=== PATIENT | male | born 1975 | race Caucasian/White ===

== ENCOUNTER 2025-10-20 12:14 | Inpatient (IN) | payer MEDICAID, SELFPAY ==
[2025-10-20] VITALS (9 sets, daily range): BP systolic 125–169; BP diastolic 72–93; PULSE 76–90; RESP 13–18; TEMP 36.6–37.1; O2SAT 93–99; BMI 24.3; BMI 28.9
--- NOTE | 2025-10-20 12:21 | CT_ITS ---
FINAL REPORT TECHNIQUE: Thin section axial images are obtained through the abdomen and pelvis after intravenous contrast. Reconstruction images were obtained from the axial data. Exam was performed using dose reduction techniques. CLINICAL HISTORY: S/p colostomy, upper abdominal pain COMPARISON: None FINDINGS: LUNG BASES: Lung bases are clear. Heart size is normal. LIVER: Homogeneous. No focal lesion. GALLBLADDER/BILIARY SYSTEM: Gallbladder is present. No gallstones. No biliary dilatation. SPLEEN: Mildly enlarged. PANCREAS: Unremarkable. ADRENALS: Unremarkable. KIDNEYS/URETERS/BLADDER: No hydronephrosis, renal mass, or renal stone. Unremarkable urinary bladder. GI TRACT: There are dilated small bowel loops in the left mid abdomen and left lower quadrant. Loops are dilated up to 45 mm. There is mesenteric edema and a small amount of mesenteric fluid between the loops. Decompressed loops are noted both proximally and distally and closed loop obstruction is not excluded. There are changes from total colectomy. 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 The hernia does not appear to be the site of obstruction. PELVIC ORGANS: Prostate unremarkable. LYMPH NODES/RETROPERITONEUM/MESENTERY: No lymphadenopathy. No abdominal aortic aneurysm. ABDOMINAL WALL: The abdominal wall is intact. FREE FLUID: Small amount of free fluid in the pelvis. BONES: No acute osseous abnormality. IMPRESSION: Dilated small bowel loops in the left abdomen with decompressed loops both proximally and distally. Closed loop small-bowel obstruction not excluded. 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 Reviewed, Interpreted and Dictated by Ginny Yancey MD Transcribed by Margie Vieyra Authenticated and [facility]
--- NOTE | 2025-10-20 12:23 | ED_ITS ---
Discharge Plan Clinical Impressions Clinical Impression: SBO (small bowel obstruction), Acute hyponatremia, Elevated lactic acid level Instructions Patient Instructions: DI for Acute Abdominal Pain Print Language Print Language: Citizen Of [place] Discharge ED Provider: Cedric Odonnell General Adult HPI General Chief complaint: Abdominal Pain Stated complaint: abd pain Time Seen by Provider: 10/20/25 12:17 Mode of Arrival: EMS Source of Information: Patient and EMS Description of Symptoms (Recalled from ER Triage Doc. by RN): Patient states that he has had lower abdominal pain since about midnight this morning, also states he has had vomiting, but unable to tell me how mamy episodes of vomiting. Patient given Zofran and Toradol prior to arrival to ER by EMS and states it has helped pain some. History of Present Illness HPI narrative: Dustin Martel is a 50-year-old male with past medical history of ulcerative colitis status post colostomy 8 to 10 years ago at [facility] who presents to the emergency department for complaints of abdominal pain and nausea. Patient states that he was playing videogames last night at approximately midnight when he developed cramping abdominal pain that waxes and wanes in severity. He notes that he has had to empty his colostomy bag twice since then, which is normal for him. Has not had any change in his stool or blood in his stool. He denies any dysuria or hematuria. He is concerned he might have a bowel obstruction. He received Zofran and Toradol and route and states that he is feeling somewhat better after this. He denies any fevers. Related Data Allergies Allergy/AdvReac Type Severity Reaction Status Date / Time No Known Allergies Allergy Verified 10/20/25 12:19 [facility] Disclaimer: The information contained in this section may have been updated after the patient was seen, as this information can be updated by other users. Social History Smoking Status: Current every day smoker alcohol intake: never current occupational status: other Travel in the last 8 weeks?: None ROS Obtained: Yes Systems reviewed as appropriate & no additional complaints except as documented Physical Exam General General appearance: alert Comment: ill but non-toxic appearing Head Head exam: atraumatic Eye Eye exam: Present normal appearance ENT ENT exam: Present normal external ear exam Neck Neck exam: Present full ROM Chest Chest inspection: Present symmetric chest wall rise Respiratory Respiratory exam: Present normal lung sounds bilaterally; Absent respiratory distress, wheezes or stridor Cardiovascular Cardiovascular exam: Present regular rate and normal rhythm Abdominal Exam Abdominal exam: Present soft, distention (upper abdomen) and tenderness (LUQ and epigastric); Absent guarding or rigidity Comment: Nonbloody, semi solid stool output in ostomy exam: Present deferred Extremities Exam Extremities exam: Present normal inspection Back Exam Back exam: Present normal inspection Neurological Exam Neurological exam: Present alert and oriented X3 Psychiatric Psychiatric exam: Present normal affect Skin Skin exam: Present warm and dry Medical Decision Making Medical Records Screening: Per USPSTF and CDC recommendations, given the prevalence of disease in our region, it is our hospital?s policy to screen for HIV and viral Hepatitis for all patients aged 18 and over and those with ongoing risk factors. Zhou Inquiry Pt receiving controlled substance: No Vital Signs: 10/20/25 12:14 10/20/25 12:30 10/20/25 13:00 Temperature 98.7 F Temperature Source Oral Pulse Rate 82 86 Pulse Rate [Left Brachial] 90 Respiratory Rate 16 13 14 Blood Pressure 139/78 139/79 Blood Pressure [Left Arm] 169/93 H Blood Pressure Mean 94 Blood Pressure Mean [Left Arm] 118 Blood Pressure Source [Left Arm] Automatic Cuff Blood Pressure Position [Left Arm] Sitting 02 Sat by Pulse Oximetry 99 93 L 96 Oxygen Delivery Method Room Air 10/20/25 13:30 10/20/25 14:00 10/20/25 14:30 Temperature Temperature Source Pulse Rate 80 Pulse Rate [Left Brachial] Respiratory Rate 16 Blood Pressure 134/72 133/81 125/81 Blood Pressure [Left Arm] Blood Pressure Mean 92 92 88 Blood Pressure Mean [Left Arm] Blood Pressure Source [Left Arm] Blood Pressure Position [Left Arm] 02 Sat by Pulse Oximetry 97 Oxygen Delivery Method Lab Data Lab Results 10/20/25 12:15: WBC 10.5, RBC 5.64, Hgb 15.7, Hct 45.1, MCV 80.0, MCH 27.8, MCHC 34.8, RDW 12.8, Plt Count 345, MPV 8.7, Neut % (Auto) 90.3 H, Lymph % (Auto) 4.0 L, [place] % (Auto) 4.5, Eos % (Auto) 0.3, Baso % (Auto) 0.6, Neut # (Auto) 9.5 H, Lymph # (Auto) 0.4 L, Blaine # (Auto) 0.5, Eos # (Auto) 0.0, Baso # (Auto) 0.1, Total Counted 100, Neutrophils % (Manual) 90 H, Lymphocytes % (Manual) 6 L, Monocytes % (Manual) 4, Platelet Estimate Normal, RBC Morphology Normal, Sodium 129 L, Potassium 4.5, Chloride 96 L, Carbon Dioxide 22, Anion Gap 15.5 H, BUN 13, Creatinine 0.90, Estimated Creat Clear 105, Estimated GFR 89, Est GFR ( Amer) 107, Glucose 246 H, Lactate 3.9 H, Calcium 9.9, Total Bilirubin 1.1, AST 29, ALT 36, Alkaline Phosphatase 100, Total Protein 8.6 H, Albumin 5.1 H, Globulin 3.5 H, Albumin/Globulin Ratio 1.5, Lipase 63 10/20/25 13:35: Urine Color Yellow, Urine Appearance Clear, Urine pH 5.0, Ur Specific [place] 1.015, Urine Protein Negative, Urine Glucose (UA) 2+, Urine Ketones 1+, Urine Blood Negative, Urine Nitrate Negative, Urine Bilirubin Negative, Urine Urobilinogen 0.2, Ur Leukocyte Esterase Negative, Urine RBC None, Urine WBC None, Ur Squamous Epith Cells Occasional, Urine Bacteria None 10/20/25 12:15 10/20/25 12:15 Orders (Tests/Meds): ED MEDICATIONS Generic Name Dose Route Start Last Admin Trade Name Freq PRN Reason Stop Dose Admin Sodium Chloride 10 ml 10/20/25 13:06 10/20/25 13:08 Sodium Chloride 0.9% 10ml Syr (Rad Only) IV 11/19/25 13:05 10 ml NEEDED PRN Administration Maintain IV Site Discontinued Medications Generic Name Dose Route Start Last Admin Trade Name Freq PRN Reason Stop Dose Admin Iopamidol 75 ml 10/20/25 13:06 10/20/25 13:08 Iopamidol-370 (76%);100ml Bottle IV 10/20/25 13:07 75 ml ONCE ONE Administration ORDERS Category Date Time Status CT abdomen pelvis w con Stat Cat Scan 10/20/25 12:21 Completed CBC w/Auto Diff [Complete Blood Count Auto Diff] Stat Lab 10/20/25 12:15 Completed CMP [Comprehensive Metabolic Panel] Stat Lab 10/20/25 12:15 Completed Lactic Acid Stat Lab 10/20/25 12:15 Completed Lipase Stat Lab 10/20/25 12:15 Completed UA [Urinalysis and Microscopic] Stat Lab 10/20/25 13:35 Completed Medical Decision Narrative: Dustin Martel is a 50-year-old male with past medical history of ulcerative colitis status post colostomy 8 to 10 years ago at [facility], [facility] who presents to the emergency department for complaints of abdominal pain and nausea. Patient states that he was playing videogames last night at approximately midnight when he developed cramping abdominal pain that waxes and wanes in severity. He notes that he has had to empty his colostomy bag twice since then, which is normal for him. Has not had any change in his stool or blood in his stool. He denies any dysuria or hematuria. He is concerned he might have a bowel obstruction. He received Zofran and Toradol and route and states that he is feeling somewhat better after this. He denies any fevers. On arrival, patient is hemodynamically stable, in no acute distress, breathing comfortably on room air with appropriate oxygen saturation. Physical exam, as stated above, revealed an overall well-appearing male is nontoxic. Physical exam shows epigastric and left upper quadrant tenderness without rebound, peritonitis. Some mild guarding in the left upper quadrant. He does appear somewhat distended in the upper abdomen. Patient ostomy is in place with parastomal hernia that is reducible. Differential diagnosis includes, but is not limited to: Small bowel obstruction, gastritis, acute pancreatitis, constipation, among others. The most morbid conditions were considered and workup was based on these. Workup in the emergency department included hematologic labs, urinalysis, CT abdomen pelvis with IV contrast. Patient stated that his pain and nausea were improving at this time, will defer additional pain medication at this time. Laboratory studies show no leukocytosis, no anemia, hyponatremia at 129, electrolytes otherwise within normal limits. Mildly elevated anion gap 15.5, likely related to elevated lactate of 3.9 liver enzymes and bilirubin within normal limits. Lipase normal at 63. Urinalysis without blood or evidence of infection. CT abdomen pelvis with IV contrast was interpreted by me personally. Patient has dilated loops of small bowel in the left abdomen with decompressed loops of both proximally and distally. Closed-loop small bowel obstruction is not excluded. 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 Patient also has some mesenteric edema and small amount of mesenteric fluid between the loops. See radiology report for details. Given these findings, I discussed patient's case with Dr. Curiel with general surgery who recommended conservative management with NG tube placement. He recommended admission and surgery will evaluate the patient in the morning and if GI is needed, they can be consulted on Thursday. I discussed this with patient he is agreeable for NG tube placement and admission. Also discussed patient's case with Dr. Orlando with hospital medicine service for admission and he is agreeable to admit at this time. Critical Care Critical Care Time Critical Care Time: No
[2025-10-20 12:30] LABS: Hematocrit 45.1 % (42.0-52.0); Hemoglobin 15.7 g/dL (14.1-18.0); Immature Granulocytes % 0.3 %; Mean Corpuscular HGB Conc 34.8 g/dL (31.8-35.4); Mean Corpuscular Hemoglobin 27.8 pg (27.0-31.2); Mean Corpuscular Volume 80.0 fl (80-94); Nucleated Red Blood Cells % 0 %; Platelet Count 345 K/mm3 (142-424); Red Blood Count 5.64 M/mm3 (4.60-6.20); Red Cell Distribution Width-SD 36.2 fL; White Blood Count 10.5 K/mm3 (4.8-10.8)
[2025-10-20 12:37] LABS: Alanine Aminotransferase 36 U/L (12-78); Albumin Level 5.1 g/dl (3.5-5.0); Albumin/Globulin Ratio 1.5 (1.1-1.8); Alkaline Phosphatase 100 U/L (38-126); Anion Gap 15.5 mEq/L (5-15); Aspartate Amino Transferase 29 U/L (17-59); Bilirubin,Total 1.1 mg/dl (0.2-1.3); Blood Urea Nitrogen 13 mg/dl (9-20); Calcium 9.9 mg/dl (8.4-10.2); Carbon Dioxide 22 mmol/L (22.0-30.0); Chloride 96 mmol/L (98-107); Creatinine Clearance Estimated 105 mL/min (50-200); Creatinine,Serum 0.90 mg/dl (0.66-1.25); Estimated Glomerular Filt Rate 89 ml/min (>60); GFR (African American) 107 ML/MIN (>60); Globulin 3.5 g/dL (1.3-3.2); Glucose 246 mg/dl (74-100); Lipase 63 U/L (23-300); Potassium 4.5 mmoL/L (3.5-5.1); Sodium 129 mmol/L (136-145); Total Protein,Serum 8.6 g/dl (6.3-8.2)
--- NOTE | 2025-10-20 12:52 | PC.NURSE ---
Pt reminded of need for urine sample. Provided patient with urinal.
--- OUTSIDE RECORDS SUMMARY | 2025-10-20 12:57 | XMS_ITS ---
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 Role Phone RAHUL BOLANOS Unavailable CHANORAUL M Unavailable ALLERGIES, ADVERSE REACTIONS AND ALERTS Allergy Name Allergy Date Allergy Status Allergy Severity Allergy Reaction NO KNOWN DRUG ALLERGIES MEDICATIONS RxNorm Brand Name Prescription Ordered Value Order Unit Start Date Date Status Fill Status Indications [id number] buprenor phine-na loxone 8-2 mg tablet, sublingu al SIG: buprenorphine -naloxone 8-2 mg sublingual tablet, sublingual, 6 days, Dispense #6 Tablet, 0 RefillsDirect ions: Take 1 sublingual tablet qd 6 tablet, sublingu al 2020 Historic [id number] buprenor phine-na loxone 8-2 mg tablet, sublingu al SIG: buprenorphine -naloxone 8-2 mg sublingual tablet, sublingual, 6 days, Dispense #6 Tablet, 0 RefillsDirect ions: Take 1 sublingual tablet qd 6 tablet, sublingu al 2020 Current [id number] buprenor phine-na loxone 8-2 mg tablet, sublingu al SIG: buprenorphine -naloxone 8-2 mg sublingual tablet, sublingual, 7 days, Dispense #11 Tablet, 0 RefillsDirect ions: Take 1 and 1/2 sublingual tablet qd 11 tablet, sublingu al 2020 Historic [id number] buprenor phine-na loxone 8-2 mg tablet, sublingu al SIG: buprenorphine -naloxone 8-2 mg sublingual tablet, sublingual, 7 days, Dispense #11 Tablet, 0 RefillsDirect ions: Take 1 1/2 sublingual tablets qd 11 tablet, sublingu al 2020 [facility] buprenor phine-na loxone 8-2 mg tablet, sublingu al SIG: buprenorphine -naloxone 8-2 mg sublingual tablet, sublingual, 7 days, Dispense #14 Tablet, 0 RefillsDirect ions: Take 2 sublingual tablet qd 14 tablet, sublingu al 2020 [facility] buprenor phine-na loxone 8-2 mg tablet, sublingu al SIG: buprenorphine -naloxone 8-2 mg sublingual tablet, sublingual, 7 days, Dispense #14 Tablet, 0 RefillsDirect ions: Take 2 sublingual tablet qd 14 tablet, sublingu al 2020 [facility] buprenor phine-na loxone 8-2 mg tablet, sublingu al SIG: buprenorphine -naloxone 8-2 mg sublingual tablet, sublingual, 14 days, Dispense #28 Tablet, 0 RefillsDirect ions: Take 2 sublingual tablet qd 28 tablet, sublingu al 2020 [facility] buprenor phine-na loxone 8-2 mg tablet, sublingu al SIG: buprenorphine -naloxone 8-2 mg sublingual tablet, sublingual, 14 days, Dispense #28 Tablet, 0 RefillsDirect ions: Take 2 sublingual tablet qd 28 tablet, sublingu al 2020 Historic [id number] buprenor phine-na loxone 8-2 mg tablet, sublingu al SIG: buprenorphine -naloxone 8-2 mg sublingual tablet, sublingual, 28 days, Dispense #56 Tablet, 0 RefillsDirect ions: Take 2 sublingual tablet qd 56 tablet, sublingu al 2020 Historic [id number] buprenor phine-na loxone 8-2 mg tablet, sublingu al SIG: buprenorphine -naloxone 8-2 mg sublingual tablet, sublingual, 28 days, Dispense #56 Tablet, 0 RefillsDirect ions: Take 2 sublingual tablet qd 56 tablet, sublingu al 2020 Historic [id number] buprenor phine-na loxone 8-2 mg tablet, sublingu al SIG: buprenorphine -naloxone 8-2 mg sublingual tablet, sublingual, 28 days, Dispense #56 Tablet, 0 RefillsDirect ions: Take 2 sublingual tablet qd 56 tablet, sublingu al 2020 [facility] buprenor phine-na loxone 8-2 mg tablet, sublingu al SIG: buprenorphine -naloxone 8-2 mg sublingual tablet, sublingual, 28 days, Dispense #56 Tablet, 0 RefillsDirect ions: Take 2 sublingual tablet qd 56 tablet, sublingu al 2020 [facility] buprenor phine-na loxone 8-2 mg tablet, sublingu al SIG: buprenorphine -naloxone 8-2 mg sublingual tablet, sublingual, 28 days, Dispense #56 Tablet, 0 RefillsDirect ions: Take 2 sublingual tablet qd 56 tablet, sublingu al 2020 [facility] buprenor phine-na loxone 8-2 mg tablet, sublingu al SIG: buprenorphine -naloxone 8-2 mg sublingual tablet, sublingual, 22 days, Dispense #44 Tablet, 0 RefillsDirect ions: Take 2 sublingual tablet qd 44 tablet, sublingu al 2020 [facility] buprenor phine-na loxone 8-2 mg tablet, sublingu al SIG: buprenorphine -naloxone 8-2 mg sublingual tablet, sublingual, 7 days, Dispense #14 Tablet, 3 RefillsDirect ions: Take 2 sublingual tablet once a day 14 tablet, sublingu al 2021 [facility] buprenor phine-na loxone 8-2 mg tablet, sublingu al SIG: buprenorphine -naloxone 8-2 mg sublingual tablet, sublingual, 28 days, Dispense #56 Tablet, 0 RefillsDirect ions: Take 2 sublingual tablet once a day 56 tablet, sublingu al 2021 [facility] buprenor phine-na loxone 8-2 mg tablet, sublingu al SIG: buprenorphine -naloxone 8-2 mg sublingual tablet, sublingual, 28 days, Dispense #56 Tablet, 0 RefillsDirect ions: Take 2 sublingual tablet once a day 56 tablet, sublingu al 2021 [facility] buprenor phine-na loxone 8-2 mg tablet, sublingu al SIG: buprenorphine -naloxone 8-2 mg sublingual tablet, sublingual, 14 days, Dispense #28 Tablet, 0 RefillsDirect ions: Take 2 sublingual tablet once a day 28 tablet, sublingu al 2021 [facility] buprenor phine-na loxone 8-2 mg tablet, sublingu al SIG: buprenorphine -naloxone 8-2 mg sublingual tablet, sublingual, 28 days, Dispense #56 Tablet, 0 RefillsDirect ions: Take 2 sublingual tablet once a day 56 tablet, sublingu al 2021 [facility] buprenor phine-na loxone 8-2 mg tablet, sublingu al SIG: buprenorphine -naloxone 8-2 mg sublingual tablet, sublingual, 28 days, Dispense #56 Tablet, 0 RefillsDirect ions: Take 2 sublingual tablet once a day 56 tablet, sublingu al 2021 [facility] buprenor phine-na loxone 8-2 mg tablet, sublingu al SIG: buprenorphine -naloxone 8-2 mg sublingual tablet, sublingual, 28 days, Dispense #56 Tablet, 0 RefillsDirect ions: Take 2 sublingual tablet once a day 56 tablet, sublingu al 2021 [facility] buprenor phine-na loxone 8-2 mg tablet, sublingu al SIG: buprenorphine -naloxone 8-2 mg sublingual tablet, sublingual, 28 days, Dispense #56 Tablet, 0 RefillsDirect ions: Take 2 sublingual tablet once a day 56 tablet, sublingu al 2021 [facility] buprenor phine-na loxone 8-2 mg tablet, sublingu al SIG: buprenorphine -naloxone 8-2 mg sublingual tablet, sublingual, 28 days, Dispense #56 Tablet, 0 RefillsDirect ions: Take 2 sublingual tablet once a day 56 tablet, sublingu al 2021 [facility] buprenor phine-na loxone 8-2 mg tablet, sublingu al SIG: buprenorphine -naloxone 8-2 mg sublingual tablet, sublingual, 28 days, Dispense #56 Tablet, 0 RefillsDirect ions: Take 2 sublingual tablet once a day 56 tablet, sublingu al 2021 [facility] buprenor phine-na loxone 8-2 mg tablet, sublingu al SIG: buprenorphine -naloxone 8-2 mg sublingual tablet, sublingual, 28 days, Dispense #56 Tablet, 0 RefillsDirect ions: Take 2 sublingual tablet once a day 56 tablet, sublingu al 2021 [facility] buprenor phine-na loxone 8-2 mg tablet, sublingu al SIG: buprenorphine -naloxone 8-2 mg sublingual tablet, sublingual, 28 days, Dispense #56 Tablet, 0 RefillsDirect ions: Take 2 sublingual tablet once a day 56 tablet, sublingu al 2021 [facility] buprenor phine-na loxone 8-2 mg tablet, sublingu al SIG: buprenorphine -naloxone 8-2 mg sublingual tablet, sublingual, 28 days, Dispense #56 Tablet, 0 RefillsDirect ions: Take 2 sublingual tablet once a day 56 tablet, sublingu al 2021 [facility] buprenor phine-na loxone 8-2 mg tablet, sublingu al SIG: buprenorphine -naloxone 8-2 mg sublingual tablet, sublingual, 28 days, Dispense #56 Tablet, 0 RefillsDirect ions: Take 2 sublingual tablet once a day 56 tablet, sublingu al 2021 [facility] buprenor phine-na loxone 8-2 mg tablet, sublingu al SIG: buprenorphine -naloxone 8-2 mg sublingual tablet, sublingual, 28 days, Dispense #56 Tablet, 0 RefillsDirect ions: Take 2 sublingual tablet once a day 56 tablet, sublingu al 2022 [facility] buprenor phine-na loxone 8-2 mg tablet, sublingu al SIG: buprenorphine -naloxone 8-2 mg sublingual tablet, sublingual, 28 days, Dispense #56 Tablet, 0 RefillsDirect ions: Take 2 sublingual tablet once a day 56 tablet, sublingu al 2022 [facility] buprenor phine-na loxone 8-2 mg tablet, sublingu al SIG: buprenorphine -naloxone 8-2 mg sublingual tablet, sublingual, 28 days, Dispense #56 Tablet, 0 RefillsDirect ions: Take 2 sublingual tablet once a day 56 tablet, sublingu al 2022 [facility] buprenor phine-na loxone 8-2 mg tablet, sublingu al SIG: buprenorphine -naloxone 8-2 mg sublingual tablet, sublingual, 28 days, Dispense #56 Tablet, 0 RefillsDirect ions: Take 2 sublingual tablet once a day 56 tablet, sublingu al 2022 [facility] buprenor phine-na loxone 8-2 mg tablet, sublingu al SIG: buprenorphine -naloxone 8-2 mg sublingual tablet, sublingual, 28 days, Dispense #56 Tablet, 0 RefillsDirect ions: Take 2 sublingual tablet once a day 56 tablet, sublingu al 2022 [facility] buprenor phine-na loxone 8-2 mg tablet, sublingu al SIG: buprenorphine -naloxone 8-2 mg sublingual tablet, sublingual, 28 days, Dispense #56 Tablet, 0 RefillsDirect ions: Take 2 sublingual tablet once a day 56 tablet, sublingu al 2022 [facility] buprenor phine-na loxone 8-2 mg tablet, sublingu al SIG: buprenorphine -naloxone 8-2 mg sublingual tablet, sublingual, 28 days, Dispense #56 Tablet, 0 RefillsDirect ions: Take 2 sublingual tablet once a day 56 tablet, sublingu al 2022 [facility] buprenor phine-na loxone 8-2 mg tablet, sublingu al SIG: buprenorphine -naloxone 8-2 mg sublingual tablet, sublingual, 28 days, Dispense #56 Tablet, 0 RefillsDirect ions: Take 2 sublingual tablet once a day 56 tablet, sublingu al 2022 [facility] buprenor phine-na loxone 8-2 mg tablet, sublingu al SIG: buprenorphine -naloxone 8-2 mg sublingual tablet, sublingual, 28 days, Dispense #56 Tablet, 0 RefillsDirect ions: Take 2 sublingual tablet once a day 56 tablet, sublingu al 2022 [facility] buprenor phine-na loxone 8-2 mg tablet, sublingu al SIG: buprenorphine -naloxone 8-2 mg sublingual tablet, sublingual, 28 days, Dispense #56 Tablet, 0 RefillsDirect ions: Take 2 sublingual tablet once a day 56 tablet, sublingu al 2022 [facility] buprenor phine-na loxone 8-2 mg tablet, sublingu al SIG: buprenorphine -naloxone 8-2 mg sublingual tablet, sublingual, 28 days, Dispense #56 Tablet, 0 RefillsDirect ions: Take 2 sublingual tablet once a day 56 tablet, sublingu al 2022 [facility] buprenor phine-na loxone 8-2 mg tablet, sublingu al SIG: buprenorphine -naloxone 8-2 mg sublingual tablet, sublingual, 28 days, Dispense #56 Tablet, 0 RefillsDirect ions: Take 2 sublingual tablet once a day 56 tablet, sublingu al 2022 [facility] buprenor phine-na loxone 8-2 mg tablet, sublingu al SIG: buprenorphine -naloxone 8-2 mg sublingual tablet, sublingual, 28 days, Dispense #56 Tablet, 0 RefillsDirect ions: Take 2 sublingual tablet once a day 56 tablet, sublingu al 2022 [facility] buprenor phine-na loxone 8-2 mg tablet, sublingu al SIG: buprenorphine -naloxone 8-2 mg sublingual tablet, sublingual, 28 days, Dispense #56 Tablet, 0 RefillsDirect ions: Take 2 sublingual tablet once a day 56 tablet, sublingu al 2023 [facility] buprenor phine-na loxone 8-2 mg tablet, sublingu al SIG: buprenorphine -naloxone 8-2 mg sublingual tablet, sublingual, 28 days, Dispense #56 Tablet, 0 Refills, Directions: Place 2 tablets SL once a day 56 tablet, sublingu al 2023 [facility] buprenor phine-na loxone 8-2 mg tablet, sublingu al SIG: buprenorphine -naloxone 8-2 mg sublingual tablet, sublingual, 28 days, Dispense #56 Tablet, 0 Refills, Directions: Place 2 tablets SL once a day 56 tablet, sublingu al 2023 [facility] buprenor phine-na loxone 8-2 mg tablet, sublingu al SIG: buprenorphine -naloxone 8-2 mg sublingual tablet, sublingual, 7 days, Dispense #14 Tablet, 0 Refills, Directions: Take 2 sublingual tablet once a day 14 tablet, sublingu al 2023 [facility] buprenor phine-na loxone 8-2 mg tablet, sublingu al SIG: buprenorphine -naloxone 8-2 mg sublingual tablet, sublingual, 28 days, Dispense #56 Tablet, 0 Refills, Directions: Place 2 tablets SL once a day 56 tablet, sublingu al 2023 [facility] buprenor phine-na loxone 8-2 mg tablet, sublingu al SIG: buprenorphine -naloxone 8-2 mg sublingual tablet, sublingual, 28 days, Dispense #56 Tablet, 0 Refills, Directions: Place 2 tablets SL once a day 56 tablet, sublingu al 2023 [facility] buprenor phine-na loxone 8-2 mg tablet, sublingu al SIG: buprenorphine -naloxone 8-2 mg sublingual tablet, sublingual, 28 days, Dispense #56 Tablet, 0 Refills, Directions: Place 2 tablets SL once a day 56 tablet, sublingu al 2023 [facility] buprenor phine-na loxone 8-2 mg tablet, sublingu al SIG: buprenorphine -naloxone 8-2 mg sublingual tablet, sublingual, 28 days, Dispense #56 Tablet, 0 Refills, Directions: Place 2 tablets SL once a day 56 tablet, sublingu al 2023 [facility] buprenor phine-na loxone 8-2 mg tablet, sublingu al SIG: buprenorphine -naloxone 8-2 mg sublingual tablet, sublingual, 28 days, Dispense #56 Tablet, 0 Refills, Directions: Place 2 tablets SL once a day 56 tablet, sublingu al 2023 [facility] buprenor phine-na loxone 8-2 mg tablet, sublingu al SIG: buprenorphine -naloxone 8-2 mg sublingual tablet, sublingual, 28 days, Dispense #56 Tablet, 0 Refills, Directions: Place 2 tablets SL once a day 56 tablet, sublingu al 2023 Current [id number] buprenor phine-na loxone 8-2 mg tablet, sublingu al SIG: buprenorphine -naloxone 8-2 mg sublingual tablet, sublingual, 28 days, Dispense #56 Tablet, 0 Refills, Directions: Place 2 tablets SL once a day 56 tablet, sublingu al 2023 Current [id number] buprenor phine-na loxone 8-2 mg tablet, sublingu al SIG: buprenorphine -naloxone 8-2 mg sublingual tablet, sublingual, 22 days, Dispense #44 Tablet, 0 Refills, Directions: 2 tabs daily 44 tablet, sublingu al 2023 Current [id number] buprenor phine-na loxone 8-2 mg tablet, sublingu al SIG: buprenorphine -naloxone 8-2 mg sublingual tablet, sublingual, 27 days, Dispense #54 Tablet, 0 Refills, Directions: 2 tabs daily 54 tablet, sublingu al 2023 Current [id number] buprenor phine-na loxone 8-2 mg tablet, sublingu al SIG: buprenorphine -naloxone 8-2 mg sublingual tablet, sublingual, 28 days, Dispense #56 Tablet, 0 Refills, Directions: 2 tabs daily 56 tablet, sublingu al 2024 Current [id number] lisinopr il 10 mg tablet SIG: lisinopril 10 mg oral tablet, 30 days, Dispense #30 Tablet, 0 Refills, Directions: 1 po daily 30 tablet 2024 Current [id number] Abilify 2 mg tablet SIG: Abilify 2 mg oral tablet, 30 days, Dispense #30 Tablet, 0 Refills, Directions: 1 po daily 30 tablet 2024 Current [id number] escitalo pram oxalate 5 mg tablet SIG: escitalopram oxalate 5 mg oral tablet, 30 days, Dispense #30 Tablet, 0 Refills, Directions: 1 po daily 30 tablet 2024 Current [id number] buprenor phine-na loxone 8-2 mg tablet, sublingu al SIG: buprenorphine -naloxone 8-2 mg sublingual tablet, sublingual, 29 days, Dispense #58 Tablet, 0 Refills, Directions: 2 tabs daily 58 tablet, sublingu al 2024 Current [id number] buprenor phine-na loxone 8-2 mg tablet, sublingu al SIG: buprenorphine -naloxone 8-2 mg sublingual tablet, sublingual, 28 days, Dispense #56 Tablet, 0 Refills, Directions: 2 tabs daily 56 tablet, sublingu al 2024 Current [id number] buprenor phine-na loxone 8-2 mg tablet, sublingu al SIG: buprenorphine -naloxone 8-2 mg sublingual tablet, sublingual, 28 days, Dispense #56 Tablet, 0 Refills, Directions: 2 tabs daily 56 tablet, sublingu al 2024 Current [id number] buprenor phine-na loxone 8-2 mg tablet, sublingu al SIG: buprenorphine -naloxone 8-2 mg sublingual tablet, sublingual, 28 days, Dispense #56 Tablet, 0 Refills, Directions: 2 tabs daily 56 tablet, sublingu al 2024 [facility] buprenor phine-na loxone 8-2 mg tablet, sublingu al SIG: buprenorphine -naloxone 8-2 mg sublingual tablet, sublingual, 28 days, Dispense #56 Tablet, 0 Refills, Directions: 2 tabs daily 56 tablet, sublingu al 2024 Current [id number] buprenor phine-na loxone 8-2 mg tablet, sublingu al SIG: buprenorphine -naloxone 8-2 mg sublingual tablet, sublingual, 28 days, Dispense #56 Tablet, 0 Refills, Directions: 2 tabs daily 56 tablet, sublingu al 2024 [facility] buprenor phine-na loxone 8-2 mg tablet, sublingu al SIG: buprenorphine -naloxone 8-2 mg sublingual tablet, sublingual, 21 days, Dispense #53 Tablet, 0 Refills, Directions: 2.5 tabs daily 53 tablet, sublingu al 2024 Historic [id number] buprenor phine-na loxone 8-2 mg tablet, sublingu al SIG: buprenorphine -naloxone 8-2 mg sublingual tablet, sublingual, 28 days, Dispense #70 Tablet, 0 Refills, Directions: 2.5 tabs daily 70 tablet, sublingu al 2024 [facility] buprenor phine-na loxone 8-2 mg tablet, sublingu al SIG: buprenorphine -naloxone 8-2 mg sublingual tablet, sublingual, 28 days, Dispense #70 Tablet, 0 Refills, Directions: 2.5 tabs daily 70 tablet, sublingu al 2024 [facility] buprenor phine-na loxone 8-2 mg tablet, sublingu al SIG: buprenorphine -naloxone 8-2 mg sublingual tablet, sublingual, 28 days, Dispense #84 Tablet, 0 Refills, Directions: 3 tabs daily 84 tablet, sublingu al 2024 [facility] buprenor phine-na loxone 8-2 mg tablet, sublingu al SIG: buprenorphine -naloxone 8-2 mg sublingual tablet, sublingual, 7 days, Dispense #14 Tablet, 0 Refills, Directions: 2 tabs daily 14 tablet, sublingu al 2024 [facility] buprenor phine-na loxone 8-2 mg tablet, sublingu al SIG: buprenorphine -naloxone 8-2 mg sublingual tablet, sublingual, 14 days, Dispense #42 Tablet, 0 Refills, Directions: 3 tabs daily 42 tablet, sublingu al 2024 [facility] buprenor phine-na loxone 8-2 mg tablet, sublingu al SIG: buprenorphine -naloxone 8-2 mg sublingual tablet, sublingual, 28 days, Dispense #84 Tablet, 0 Refills, Directions: 3 tabs daily 84 tablet, sublingu al 2024 [facility] buprenor phine-na loxone 8-2 mg tablet, sublingu al SIG: buprenorphine -naloxone 8-2 mg sublingual tablet, sublingual, 28 days, Dispense #84 Tablet, 0 Refills, Directions: 3 tabs daily 84 tablet, sublingu al 2024 Current PROBLEMS Problem Code Problem Description Problem Status Problem Da te Problem End Date F11.20-OPIOID DEPENDENCE, UNCOMPLICATED OPIOID DEPENDENCE, UNCOMPLICATED Chronic 04/25/2021 PROCEDURES Procedure Description Date Notes NO PROCEDURES PERFORMED ASSESSMENTS Assessment None PLAN OF TREATMENT Assessment Planned Activity LOINC Planned Shiva e None CONSULTATION NOTE Note Author Date None HISTORY AND PHYSICAL NOTE Note Author Date None PROGRESS NOTE Note Author Date None DISCHARGE SUMMARY Note Author Date None CHIEF COMPLAINT AND REASON FOR VISIT FUNCTIONAL STATUS Functional or Cognitive Find ing None MENTAL STATUS Cognitive Finding None ENCOUNTERS Encounter Type Provider Diagnoses Start Date Location Disc harged to None SOCIAL HISTORY Social Status Observation Smoking Status Not Recorded Sex: Male Gender Identity: Male 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
[2025-10-20 13:02] LABS: RBC Morphology Normal; Total Cells Counted 100
[2025-10-20] MEDS: SODIUM CHLORIDE 0.9% 10ML SYR (RAD ONLY) 10 ML IV (13:08)
[2025-10-20] MEDS: IOPAMIDOL-370 (76%);100ML BOTTLE 75 ML IV (13:08)
[2025-10-20 13:41] LABS: Microscopic, Urine URINE MICROSCOPIC (MICROSCOPIC)
[2025-10-20 14:11] LABS: Bilirubin,Urine Negative (Negative); Color,Urine YELLOW (Yellow); Glucose,Urine (UA) 2+ (Negative); Ketones,Urine 1+ (Negative); Leukocyte Esterase,Urine Negative (Negative); PH,Urine 5.0 (5.0-8.5); Protein,Urine Negative (Negative); Specific Gravity, Urine 1.015 (1.005-1.030); Urobilinogen,Urine 0.2 EU/dl (0.2)
--- NOTE | 2025-10-20 14:44 | PC.NURSE ---
john guzman speaking with dr. ruiz
[2025-10-20 14:45] LABS: Squamous Epithelial Cell,Urine Occasional #/hpf (0-5)
--- NOTE | 2025-10-20 15:03 | P.HP_ITS ---
History of Present Illness *Admission Date: 10/20/25 *Reason for visit:: Nausea, vomiting, abdominal pain *History of present illness: Mr. Martel is a 50-year-old male with history of ulcerative colitis and opiate use disorder status post colostomy in 2017. Currently on Suboxone. Also has a history of diabetes and hypertension but is on no medications for these and has not seen a doctor in a year. States he was at home playing video games last night when he developed crampy abdominal pain that has been waxing and waning since. Had some stool output and emptied his bag earlier but has stopped having stool output since about noon today. Given the abdominal pain, he was concerned he might have a bowel obstruction. Presented to the ER for further evaluation. Also complains of some nausea and vomiting. Received Zofran via EMS along with Toradol and had some improvement in his pain. Workup in the ER with imaging of his abdomen. CT showed SBO with no specific transition point. Also noted to have lactate of 3.9, kidney function normal with BUN 13, creatinine 0.9. Glucose elevated at 246 with pseudohyponatremia at 129. Medicine consulted for admission and further management of SBO after placement of NG. Surgery consulted and recommended serial exams and conservative management at this time. After arriving to the floor, patient still having some nausea. Alert and oriented x 4. Stable on room air. Denies fevers. [facility] Disclaimer: The information contained in this section may have been updated after the patient was seen, as this information can be updated by other users. Medical History Diabetes HTN (hypertension) Opiate dependence Surgical History History of colectomy Family History Other Diabetes Family history of cancer Social History Smoking Status: Current every day smoker alcohol intake: never current occupational status: other Travel in the last 8 weeks?: None Have you lived/traveled outside US in past 30 days?: No Contact w/someone who lives/traveled outside US past 30 days?: No Exposure to someone with infectious disease in past 14 days?: No Do you have a fever (greater than 100.4 F or 38 C)?: No Have you tested positive for COVID-19?: No Exposed to someone with COVID-19 in past 14 days?: No Do you have a sore throat?: No Do you have a cough?: No Do you have any weakness?: No Are you experiencing any nausea/vomitting?: Yes Do you have any diarrhea?: No Are you experiencing any unusual bleeding?: No Do you have any muscle aches/pain?: No Do you have any abdominal pain?: Yes Are you experiencing loss of taste or smell?: No Review of Systems Review of Systems Review of systems (narrative): 14 point review of systems performed, pertinent positives and negatives as per HPI Meds Home Medications and Allergies Home Medications ?Medication ?Instructions ?Recorded ?Confirmed ?Type buprenorphine 8 mg-naloxone 2 mg 3 tab sublingual SAHRA Y 10/20/25 10/20/25 History sublingual tablet New Prescriptions to Start Prescriptions: Allergies Allergy/AdvReac Type Severity Reaction Status Date / Time No Known Allergies Allergy Verified 10/20/25 12:19 Exam Data for Last 24 hours Vital signs and Labs for Last 24 Hours: Temp Pulse Resp BP Pulse Ox O2 Del Method 98.7 F 80 16 125/81 97 Room Air 10/20/25 12:14 10/20/25 13:30 10/20/25 13:30 10/20/25 14:30 10/20/25 13:30 10/20/25 12:14 Laboratory Results - last 24 hr 10/20/25 12:15: WBC 10.5, RBC 5.64, Hgb 15.7, Hct 45.1, MCV 80.0, MCH 27.8, MCHC 34.8, RDW 12.8, Plt Count 345, MPV 8.7, Neut % (Auto) 90.3 H, Lymph % (Auto) 4.0 L, [place] % (Auto) 4.5, Eos % (Auto) 0.3, Baso % (Auto) 0.6, Neut # (Auto) 9.5 H, Lymph # (Auto) 0.4 L, [place] # (Auto) 0.5, Eos # (Auto) 0.0, Baso # (Auto) 0.1, Total Counted 100, Neutrophils % (Manual) 90 H, Lymphocytes % (Manual) 6 L, Monocytes % (Manual) 4, Platelet Estimate Normal, RBC Morphology Normal, Sodium 129 L, Potassium 4.5, Chloride 96 L, Carbon Dioxide 22, Anion Gap 15.5 H, BUN 13, Creatinine 0.90, Estimated Creat Clear 105, Estimated GFR 89, Est GFR ( Amer) 107, Glucose 246 H, Lactate 3.9 H, Calcium 9.9, Total Bilirubin 1.1, AST 29, ALT 36, Alkaline Phosphatase 100, Total Protein 8.6 H, Albumin 5.1 H, Globulin 3.5 H, Albumin/Globulin Ratio 1.5, Lipase 63 10/20/25 13:35: Urine Color Yellow, Urine Appearance Clear, Urine pH 5.0, Ur Specific [place] 1.015, Urine Protein Negative, Urine Glucose (UA) 2+, Urine Ketones 1+, Urine Blood Negative, Urine Nitrate Negative, Urine Bilirubin Negative, Urine Urobilinogen 0.2, Ur Leukocyte Esterase Negative, Urine RBC None, Urine WBC None, Ur Squamous Epith Cells Occasional, Urine Bacteria None I & O for Last 24 hours: Intake & Output 10/17/25 10/18/25 10/19/25 10/20/25 23:59 23:59 23:59 23:59 Weight 77.111 kg Constitutional Constitutional: mild distress, chronically ill appearing and cooperative *Routine HEENT Exam Head: Present normocephalic Eye: Present EOMI and PERRL ENT: Present mucous membranes moist Comments: NG in right nare *Routine Neck Exam Neck: Present supple; Absent lymphadenopathy *Routine Respiratory Exam Respiratory: Present CTA bilaterally; Absent respiratory distress, rhonchi, stridor, wheezes or crackles *Routine Cardiovascular Exam Cardiovascular: Present RRR and murmur (Systolic) *Routine Abdominal Exam Abdominal: Present soft, normoactive bowel sounds and tenderness (Mild, nonfocal); Absent distended or rebound Comments: Colostomy right lower abdomen with scant stool output *Routine Rectal Exam Rectal:: deferred *Routine Genitalia Exam Genitalia:: deferred *Routine Extremities Exam Extremities: Absent cyanosis, clubbing or edema *Routine Skin Exam Skin: Present intact and warm; Absent rash Comments: Scars on left forearm consistent with cutting *Routine Neurological Exam Neurological: Present alert, oriented X3 and moving all extremities; Absent altered mental status Assessment and Plan *Assessment and plan (1) SBO (small bowel obstruction): Status: Acute Category: Medical Code(s): K56.609 - Unspecified intestinal obstruction, unspecified as to partial versus complete obstruction (2) Acute hyponatremia: Status: Acute Category: Medical Code(s): E87.1 - Hypo-osmolality and hyponatremia (3) Elevated lactic acid level: Status: Acute Category: Medical Code(s): R79.89 - Other specified abnormal findings of blood chemistry (4) Diabetes: Status: Acute Category: Medical Code(s): E11.9 - Type 2 diabetes mellitus without complications (5) Ulcerative colitis: Status: Acute Category: Medical Code(s): K51.90 - Ulcerative colitis, unspecified, without complications (6) Colostomy present: Status: Acute Category: Medical Code(s): Z93.3 - Colostomy status (7) Opiate dependence: Status: Acute Category: Medical Code(s): F11.20 - Opioid dependence, uncomplicated Plan 50-year-old male with history of colostomy due to UC who presented with abdominal pain, nausea, vomiting. Workup in the ER concerning for SBO. NG placed. Discussed case with ER physician, request admission for serial exams and initial medical management of bowel obstruction. I agreed to admit for further care. Surgery consulted to assist with management. Problems addressed as follows: Small bowel obstruction History of colectomy Ulcerative colitis -CT per my review with dilated loops of small bowel. No clear transition point. 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 - White count normal at 10. Lactate elevated at 3.9. Kidney function normal with BUN 13, creatinine 0.9 - Initiate Toradol 30 mg IV every 6 hours as needed for pain. Zofran 4 mg as needed every 6 hours for nausea - NG in place, initiated on continuous low wall suction - Surgery consulted, to evaluate patient in the morning - Initiate on LR at 100 cc an hour for 2 L. Reevaluate fluid needs in the mo rning - Repeat CBC, CMP, magnesium ordered for the morning Type 2 diabetes - Not on any meds at this time. A1c 7.6. Initiate on sliding scale with fingersticks ACHS - Pseudohyponatremia with sodium 129, magnesium 4.5. Sodium likely low due to elevated glucose of 246. Monitor for improvement with treatment of diabetes. Hypertension: Not on any meds at this time. Monitor blood pressure for tr eatment. blood pressure acceptable at 142/80 at this time Opiate use disorder: On Suboxone. Uses one 8/2 mg dose 3 times a day. Continue home regimen while admitted. Increases for obstruction due to opiate effect on bowels. Definitely complicates his care. Tobacco use disorder: Nicotine patch daily as needed Full code Lovenox 40 mg subcu daily N.p.o.
--- NOTE | 2025-10-20 15:16 | PC.NURSE ---
NG tube inserted. secured at 60 , green/ yellow drainage noted. Verified by auscultation.
--- NOTE | 2025-10-20 15:18 | XR_ITS ---
FINAL REPORT CLINICAL HISTORY: Post NG Tube Placement FINDINGS: ABDOMEN SINGLE VIEW There is a nonspecific, nonobstructive bowel gas pattern. No abnormal dilatation is identified. NG tube tip is in the stomach. The sidehole is either at or just above the GE junction. There is no abnormal calcification. IMPRESSION: NG tube tip in the stomach. Reviewed, Interpreted and Dictated by Ginny Yancey MD Transcribed by Asiya Doyle Authenticated and [facility]
[2025-10-20 15:23] LABS: Hemoglobin A1C 7.6 % (4.0-6.0)
--- NOTE | 2025-10-20 15:42 | PC.NURSE ---
report called to rachel birch
[2025-10-20 16:00] LABS: Hepatitis C Ab Qual. W/ RFX NEGATIVE (Negative)
[2025-10-20 16:27] LABS: Reflex Lactic Add Lactic Reflex
--- NOTE | 2025-10-20 16:28 | PC.NURSE ---
patient arrived on the floor by bed @4001
[2025-10-20 16:48] LABS: POC Glucose,Bedside 187 gm/dL (70-110)
[2025-10-20] MEDS: ONDANSETRON 4MG/2ML VIAL 4 MG IV ×2 (16:55→21:57)
[2025-10-20] MEDS: LACTATED RINGERS 1000ML 1,000 ML 100 ML IV (16:56)
[2025-10-20] MEDS: NICOTINE 21MG/24HR PATCH 21 MG TD (16:56)
[2025-10-20] MEDS: KETOROLAC 30MG/ML VIAL 30 MG IV ×2 (16:56→21:58)
[2025-10-20] MEDS: humaLOG 100 UNITS/ML 10ML VIAL (SSI) SUBCUT (16:57)
[2025-10-20 17:03] LABS: Lactic Acid Follow Up (RFLX 1) 1.5 mmol/L (0.7-2.1)
[2025-10-20 19:58] LABS: POC Glucose,Bedside 142 gm/dL (70-110)
[2025-10-20] MEDS: PROMETHAZINE HCL 25MG/ML 1ML VIAL 12.5 MG IV (23:15)
[2025-10-21] VITALS: BP 158/91; PULSE 91; RESP 14; TEMP 36.7; O2SAT 98
--- NOTE | 2025-10-21 03:05 | PC.NURSE ---
Pt AOx4, pleasant. Tolerating room air. NG in R nare at 60 cm. Pt had some pain and nausea, which was treated per MAR. Pt currently resting in bed with eyes closed. Respirations even and unlabored. Bed low, locked, and call light in reach.
[2025-10-21] MEDS: LACTATED RINGERS 1000ML 1,000 ML 100 ML IV (03:23)
[2025-10-21 04:00] VITALS: BP 148/82; PULSE 87; RESP 12; TEMP 36.7; O2SAT 97; BMI 28.8
[2025-10-21] MEDS: ONDANSETRON 4MG/2ML VIAL 4 MG IV (04:42)
[2025-10-21] MEDS: KETOROLAC 30MG/ML VIAL 30 MG IV (04:42)
[2025-10-21 05:45] LABS: POC Glucose,Bedside 139 gm/dL (70-110)
[2025-10-21 06:57] LABS: Hematocrit 41.3 % (42.0-52.0); Hemoglobin 14.5 g/dL (14.1-18.0); Immature Granulocytes % 0.3 %; Mean Corpuscular HGB Conc 35.1 g/dL (31.8-35.4); Mean Corpuscular Hemoglobin 28.0 pg (27.0-31.2); Mean Corpuscular Volume 79.9 fl (80-94); Nucleated Red Blood Cells % 0 %; Platelet Count 305 K/mm3 (142-424); Red Blood Count 5.17 M/mm3 (4.60-6.20); Red Cell Distribution Width-SD 36.0 fL; White Blood Count 14.4 K/mm3 (4.8-10.8)
[2025-10-21 07:26] LABS: Alanine Aminotransferase 17 U/L (12-78); Albumin Level 4.4 g/dl (3.5-5.0); Albumin/Globulin Ratio 1.5 (1.1-1.8); Alkaline Phosphatase 85 U/L (38-126); Anion Gap 11.2 mEq/L (5-15); Aspartate Amino Transferase 24 U/L (17-59); Bilirubin,Total 1.4 mg/dl (0.2-1.3); Blood Urea Nitrogen 16 mg/dl (9-20); Calcium 9.2 mg/dl (8.4-10.2); Carbon Dioxide 23 mmol/L (22.0-30.0); Chloride 99 mmol/L (98-107); Creatinine Clearance Estimated 124 mL/min (50-200); Creatinine,Serum 0.90 mg/dl (0.66-1.25); Estimated Glomerular Filt Rate 89 ml/min (>60); GFR (African American) 107 ML/MIN (>60); Globulin 3.0 g/dL (1.3-3.2); Glucose 157 mg/dl (74-100); Magnesium 2.1 mg/dl (1.6-2.3); Potassium 4.2 mmoL/L (3.5-5.1); Sodium 129 mmol/L (136-145); Total Protein,Serum 7.4 g/dl (6.3-8.2)
[2025-10-21 08:00] VITALS: BP 142/74; PULSE 99; RESP 18; TEMP 36.7; O2SAT 99
[2025-10-21] MEDS: BUPRENORPHINE/NALOXONE 8MG/2MG ODT 1 EACH SL ×3 (09:02→20:10)
--- NOTE | 2025-10-21 09:20 | EXP.SURG.CON ---
History of Present Illness *Admission Date: 10/20/25 *Reason for visit:: Bowel obstruction *History of present illness: Patient is a 50-year-old male from [facility] with reported history of ulcerative colitis and reported history of opiate use disorder. He is on Suboxone. He has a history of diabetes and hypertension but currently not taking any medications and has not seen a physician in greater than a year. He underwent colostomy and hazard [facility] in 2017. He had developed intermittent cramping abdominal pain over 24 hours prior to presentation to the emergency department. He had noticed decreased output from his colostomy. He presented to the emergency department. He had some relief of his symptoms with Zofran and Toradol. He underwent CT scan in the emergency department which revealed findings consistent with total colectomy, dilated small bowel loops in the left abdomen with decompressed loops both proximally and distally. He has a right lower quadrant ostomy with parastomal hernia containing small bowel which does not appear to be site of any obstruction. Surgery was contacted. This is felt to be reasonable for admission for inpatient management for bowel obstruction. Subsequently the patient's nasogastric tube became dislodged and fell out . He states that he feels better. He has emptied his ileostomy bag. . [facility] Disclaimer: The information contained in this section may have been updated after the patient was seen, as this information can be updated by other users. Medical History Diabetes HTN (hypertension) Opiate dependence Surgical History History of colectomy Family History Other Diabetes Family history of cancer Social History Smoking Status: Current every day smoker alcohol intake: never current occupational status: other Travel in the last 8 weeks?: None Have you lived/traveled outside US in past 30 days?: No Contact w/someone who lives/traveled outside US past 30 days?: No Exposure to someone with infectious disease in past 14 days?: No Do you have a fever (greater than 100.4 F or 38 C)?: No Have you tested positive for COVID-19?: No Exposed to someone with COVID-19 in past 14 days?: No Do you have a sore throat?: No Do you have a cough?: No Do you have any weakness?: No Are you experiencing any nausea/vomitting?: Yes Do you have any diarrhea?: No Are you experiencing any unusual bleeding?: No Do you have any muscle aches/pain?: No Do you have any abdominal pain?: Yes Are you experiencing loss of taste or smell?: No Meds Home Medications and Allergies Home Medications ?Medication ?Instructions ?Recorded ?Confirmed ?Type buprenorphine 8 mg-naloxone 2 mg 3 tab sublingual DAILY 10/20/25 10/20/25 History sublingual tablet New Prescriptions to Start Prescriptions: Allergies Allergy/AdvReac Type Severity Reaction Status Date / Time No Known Allergies Allergy Verified 10/20/25 12:19 Exam (Inpt) Vital signs and Labs for Last 24 Hours: Temp Pulse Resp BP Pulse Ox O2 Del Method 98.1 F 99 H 18 142/74 H 99 Room Air 10/21/25 08:00 10/21/25 08:00 10/21/25 08:00 10/21/25 08:00 10/21/25 08:00 10/21/25 09:00 Laboratory Results - last 24 hr 10/20/25 12:15: WBC 10.5, RBC 5.64, Hgb 15.7, Hct 45.1, MCV 80.0, MCH 27.8, MCHC 34.8, RDW 12.8, Plt Count 345, MPV 8.7, Neut % (Auto) 90.3 H, Lymph % (Auto) 4.0 L, [place] % (Auto) 4.5, Eos % (Auto) 0.3, Baso % (Auto) 0.6, Neut # (Auto) 9.5 H, Lymph # (Auto) 0.4 L, [place] # (Auto) 0.5, Eos # (Auto) 0.0, Baso # (Auto) 0.1, Total Counted 100, Neutrophils % (Manual) 90 H, Lymphocytes % (Manual) 6 L, Monocytes % (Manual) 4, Platelet Estimate Normal, RBC Morphology Normal, Sodium 129 L, Potassium 4.5, Chloride 96 L, Carbon Dioxide 22, Anion Gap 15.5 H, BUN 13, Creatinine 0.90, Estimated Creat Clear 105, Estimated GFR 89, Est GFR ( Amer) 107, Glucose 246 H, Hemoglobin A1c 7.6 H, Lactate 3.9 H, Calcium 9.9, Total Bilirubin 1.1, AST 29, ALT 36, Alkaline Phosphatase 100, Total Protein 8.6 H, Albumin 5.1 H, Globulin 3.5 H, Albumin/Globulin Ratio 1.5, Lipase 63, HCV Ab JUAN w/Rflx PCR Qn Negative, HIV Ag/Ab Combo Qual Negative 10/20/25 13:35: Urine Color Yellow, Urine Appearance Clear, Urine pH 5.0, Ur Specific [place] 1.015, Urine Protein Negative, Urine Glucose (UA) 2+, Urine Ketones 1+, Urine Blood Negative, Urine Nitrate Negative, Urine Bilirubin Negative, Urine Urobilinogen 0.2, Ur Leukocyte Esterase Negative, Urine RBC None, Urine WBC None, Ur Squamous Epith Cells Occasional, Urine Bacteria None 10/20/25 16:37: POC Glucose 187 H 10/20/25 16:46: Lactate 1.5 10/20/25 19:48: POC Glucose 142 H 10/21/25 05:38: POC Glucose 139 H 10/21/25 06:08: WBC 14.4 H D, RBC 5.17, Hgb 14.5, Hct 41.3 L, MCV 79.9 L, MCH 28.0, MCHC 35.1, RDW 12.6, Plt Count 305, MPV 9.1, Neut % (Auto) 86.6 H, Lymph % (Auto) 3.5 L, [place] % (Auto) 7.9, Eos % (Auto) 1.3, Baso % (Auto) 0.4, Neut # (Auto) 12.5 H, Lymph # (Auto) 0.5 L, [place] # (Auto) 1.1 H, Eos # (Auto) 0.2, Baso # (Auto) 0.1, Sodium 129 L, Potassium 4.2, Chloride 99, Carbon Dioxide 23, Anion Gap 11.2, BUN 16, Creatinine 0.90, Estimated Creat Clear 124, Estimated GFR 89, Est GFR ( Amer) 107, Glucose 157 H D, Calcium 9.2, Magnesium 2.1, Total Bilirubin 1.4 H, AST 24, ALT 17 D, Alkaline Phosphatase 85, Total Protein 7.4, Albumin 4.4 D, Globulin 3.0, Albumin/Globulin Ratio 1.5 I & O for Labs for Last 24 Hours: Intake & Output 10/18/25 10/19/25 10/20/25 10/21/25 11:59 11:59 11:59 11:59 Intake Total 1000 / 1000 Output Total 250 / 250 Balance 750 / 750 Weight 201 lb 0.985 oz GI: Present soft; Absent distention Comments:: He has mild tenderness in the parastomal location. Abdomen is nondistended. Mild subjective tenderness in the left abdomen. Results Labs 10/21/25 06:08 10/21/25 06:08 Labs: Laboratory Results - last 24 hr 10/20/25 12:15: WBC 10.5, RBC 5.64, Hgb 15.7, Hct 45.1, MCV 80.0, MCH 27.8, MCHC 34.8, RDW 12.8, Plt Count 345, MPV 8.7, Neut % (Auto) 90.3 H, Lymph % (Auto) 4.0 L, [place] % (Auto) 4.5, Eos % (Auto) 0.3, Baso % (Auto) 0.6, Neut # (Auto) 9.5 H, Lymph # (Auto) 0.4 L, [place] # (Auto) 0.5, Eos # (Auto) 0.0, Baso # (Auto) 0.1, Total Counted 100, Neutrophils % (Manual) 90 H, Lymphocytes % (Manual) 6 L, Monocytes % (Manual) 4, Platelet Estimate Normal, RBC Morphology Normal, Sodium 129 L, Potassium 4.5, Chloride 96 L, Carbon Dioxide 22, Anion Gap 15.5 H, BUN 13, Creatinine 0.90, Estimated Creat Clear 105, Estimated GFR 89, Est GFR ( Amer) 107, Glucose 246 H, Hemoglobin A1c 7.6 H, Lactate 3.9 H, Calcium 9.9, Total Bilirubin 1.1, AST 29, ALT 36, Alkaline Phosphatase 100, Total Protein 8.6 H, Albumin 5.1 H, Globulin 3.5 H, Albumin/Globulin Ratio 1.5, Lipase 63, HCV Ab JUAN w/Rflx PCR Qn Negative, HIV Ag/Ab Combo Qual Negative 10/20/25 13:35: Urine Color Yellow, Urine Appearance Clear, Urine pH 5.0, Ur Specific [place] 1.015, Urine Protein Negative, Urine Glucose (UA) 2+, Urine Ketones 1+, Urine Blood Negative, Urine Nitrate Negative, Urine Bilirubin Negative, Urine Urobilinogen 0.2, Ur Leukocyte Esterase Negative, Urine RBC None, Urine WBC None, Ur Squamous Epith Cells Occasional, Urine Bacteria None 10/20/25 16:37: POC Glucose 187 H 10/20/25 16:46: Lactate 1.5 10/20/25 19:48: POC Glucose 142 H 10/21/25 05:38: POC Glucose 139 H 10/21/25 06:08: WBC 14.4 H D, RBC 5.17, Hgb 14.5, Hct 41.3 L, MCV 79.9 L, MCH 28.0, MCHC 35.1, RDW 12.6, Plt Count 305, MPV 9.1, Neut % (Auto) 86.6 H, Lymph % (Auto) 3.5 L, [place] % (Auto) 7.9, Eos % (Auto) 1.3, Baso % (Auto) 0.4, Neut # (Auto) 12.5 H, Lymph # (Auto) 0.5 L, [place] # (Auto) 1.1 H, Eos # (Auto) 0.2, Baso # (Auto) 0.1, Sodium 129 L, Potassium 4.2, Chloride 99, Carbon Dioxide 23, Anion Gap 11.2, BUN 16, Creatinine 0.90, Estimated Creat Clear 124, Estimated GFR 89, Est GFR ( Amer) 107, Glucose 157 H D, Calcium 9.2, Magnesium 2.1, Total Bilirubin 1.4 H, AST 24, ALT 17 D, Alkaline Phosphatase 85, Total Protein 7.4, Albumin 4.4 D, Globulin 3.0, Albumin/Globulin Ratio 1.5 Assessment and Plan *Assessment and plan (1) SBO (small bowel obstruction): Status: Acute Category: Medical Code(s): K56.609 - Unspecified intestinal obstruction, unspecified as to partial versus complete obstruction Plan Due to patient's clinical improvement and resumption of ostomy output plan to keep his NG out for now. May have a few limited sips of clears. Encourage ambulation.
[2025-10-21 09:37] LABS: RBC Morphology Normal; Total Cells Counted 100
[2025-10-21 10:50] LABS: POC Glucose,Bedside 173 gm/dL (70-110)
[2025-10-21 12:00] VITALS: BP 118/60; PULSE 71; RESP 16; TEMP 37.1; O2SAT 97
--- NOTE | 2025-10-21 12:06 | EXP.ACUTE.PN ---
Subjective *Date: 10/21/25 *Time: 12:06 Interval history: NG came out overnight. States he is feeling little better this morning. Having output from ostomy. Would like to try some clears. No nausea or vomiting. No chest pain or shortness of breath. Medical Exam Vital signs and Labs for Last 24 Hours: Vital Signs Temp Pulse Pulse Resp BP BP Pulse Ox 10/21/25 10:26 10/21/25 09:00 10/21/25 08:00 10/21/25 08:00 98.1 F 99 H 18 142/74 H 99 10/21/25 06:46 10/21/25 05:00 10/21/25 04:00 98.0 F 87 12 148/82 H 97 10/21/25 03:00 10/21/25 01:00 10/21/25 00:00 98.0 F 91 H 14 158/91 H 98 10/20/25 23:00 10/20/25 21:00 10/20/25 20:00 10/20/25 20:00 98.4 F 76 14 158/86 H 98 10/20/25 18:41 10/20/25 17:00 10/20/25 16:39 97.9 F 83 16 142/80 H 98 10/20/25 16:24 98.4 F 77 18 127/81 10/20/25 14:30 125/81 10/20/25 14:00 133/81 10/20/25 13:30 80 16 134/72 97 10/20/25 13:00 86 14 139/79 96 10/20/25 12:30 82 13 139/78 93 L 10/20/25 12:14 98.7 F 90 16 169/93 H 99 O2 Del Method 10/21/25 10:26 Room Air 10/21/25 09:00 Room Air 10/21/25 08:00 Room Air 10/21/25 08:00 Room Air 10/21/25 06:46 Room Air 10/21/25 05:00 Room Air 10/21/25 04:00 Room Air 10/21/25 03:00 Room Air 10/21/25 01:00 Room Air 10/21/25 00:00 Room Air 10/20/25 23:00 Room Air 10/20/25 21:00 Room Air 10/20/25 20:00 Room Air 10/20/25 20:00 Room Air 10/20/25 18:41 Room Air 10/20/25 17:00 Room Air 10/20/25 16:39 Room Air 10/20/25 16:24 Room Air 10/20/25 14:30 10/20/25 14:00 10/20/25 13:30 10/20/25 13:00 10/20/25 12:30 10/20/25 12:14 Room Air Intake and Output 10/20/25 10/21/25 10/21/25 23:59 07:59 15:59 Intake Total 1000 / 1700 700 / 1700 Output Total 200 / 250 50 / 50 Balance -200 / -250 950 / 1650 700 / 1650 Intake: Intake, Total IV Amount 1000 / 1700 700 / 1700 Lactated Ringers 1000ML 1,000 1000 / 1700 700 / 1700 ml @ 100 mls/hr IV .Q10H [facility], [facility] Rx #:[id number] Output: Output, Urine Amount 200 / 250 50 / 50 Other: Number of Unmeasured Voids 0 0 Weight 91.626 kg 91.2 kg Patient Weight 10/21/25 23:59 Weight 91.2 kg Laboratory Results - last 24 hr 10/20/25 12:15: WBC 10.5, RBC 5.64, Hgb 15.7, Hct 45.1, MCV 80.0, MCH 27.8, MCHC 34.8, RDW 12.8, Plt Count 345, MPV 8.7, Neut % (Auto) 90.3 H, Lymph % (Auto) 4.0 L, [place] % (Auto) 4.5, Eos % (Auto) 0.3, Baso % (Auto) 0.6, Neut # (Auto) 9.5 H, Lymph # (Auto) 0.4 L, [place] # (Auto) 0.5, Eos # (Auto) 0.0, Baso # (Auto) 0.1, Total Counted 100, Neutrophils % (Manual) 90 H, Lymphocytes % (Manual) 6 L, Monocytes % (Manual) 4, Platelet Estimate Normal, RBC Morphology Normal, Sodium 129 L, Potassium 4.5, Chloride 96 L, Carbon Dioxide 22, Anion Gap 15.5 H, BUN 13, Creatinine 0.90, Estimated Creat Clear 105, Estimated GFR 89, Est GFR ( Amer) 107, Glucose 246 H, Hemoglobin A1c 7.6 H, Lactate 3.9 H, Calcium 9.9, Total Bilirubin 1.1, AST 29, ALT 36, Alkaline Phosphatase 100, Total Protein 8.6 H, Albumin 5.1 H, Globulin 3.5 H, Albumin/Globulin Ratio 1.5, Lipase 63, HCV Ab JUAN w/Rflx PCR Qn Negative, HIV Ag/Ab Combo Qual Negative 10/20/25 13:35: Urine Color Yellow, Urine Appearance Clear, Urine pH 5.0, Ur Specific [place] 1.015, Urine Protein Negative, Urine Glucose (UA) 2+, Urine Ketones 1+, Urine Blood Negative, Urine Nitrate Negative, Urine Bilirubin Negative, Urine Urobilinogen 0.2, Ur Leukocyte Esterase Negative, Urine RBC None, Urine WBC None, Ur Squamous Epith Cells Occasional, Urine Bacteria None 10/20/25 16:37: POC Glucose 187 H 10/20/25 16:46: Lactate 1.5 10/20/25 19:48: POC Glucose 142 H 10/21/25 05:38: POC Glucose 139 H 10/21/25 06:08: WBC 14.4 H D, RBC 5.17, Hgb 14.5, Hct 41.3 L, MCV 79.9 L, MCH 28.0, MCHC 35.1, RDW 12.6, Plt Count 305, MPV 9.1, Neut % (Auto) 86.6 H, Lymph % (Auto) 3.5 L, [place] % (Auto) 7.9, Eos % (Auto) 1.3, Baso % (Auto) 0.4, Neut # (Auto) 12.5 H, Lymph # (Auto) 0.5 L, [place] # (Auto) 1.1 H, Eos # (Auto) 0.2, Baso # (Auto) 0.1, Total Counted 100, Neutrophils % (Manual) 85 H, Lymphocytes % (Manual) 3 L, Monocytes % (Manual) 10 H, Eosinophils % (Manual) 1, Basophils % (Manual) 1.0, Platelet Estimate Normal, RBC Morphology Normal, Sodium 129 L, Potassium 4.2, Chloride 99, Carbon Dioxide 23, Anion Gap 11.2, BUN 16, Creatinine 0.90, Estimated Creat Clear 124, Estimated GFR 89, Est GFR ( Amer) 107, Glucose 157 H D, Calcium 9.2, Magnesium 2.1, Total Bilirubin 1.4 H, AST 24, ALT 17 D, Alkaline Phosphatase 85, Total Protein 7.4, Albumin 4.4 D, Globulin 3.0, Albumin/Globulin Ratio 1.5 10/21/25 10:39: POC Glucose 173 H I & O for Labs for Last 24 Hours: Intake & Output 10/18/25 10/19/25 10/20/25 10/21/25 23:59 23:59 23:59 23:59 Intake Total 1700 / 1700 Output Total 200 / 250 50 / 50 Balance -200 / -250 1650 / 1650 Weight 91.626 kg 91.2 kg Constitutional: Present no acute distress, chronically ill appearing and cooperative Head: Present atraumatic Comment:: Seborrhea in distribution of ornelas Respiratory: Present normal respiratory effort; Absent rhonchi, wheezes or crackles Cardiac: Present Reg Rate and Rhythm GI: Present soft, tenderness (Discomfort diffusely) and normal bowel sounds; Absent distention Comments:: Colostomy present right lower abdomen, having liquid and loose stool output Extremities: Present normal inspection and full ROM Skin: Present intact; Absent erythema Comment:: Scars on left forearm consistent with prior cutting Neuro: Present Grossly Intact, alert, awake, oriented x 3 and moves all extremities Assessment and Plan *Assessment and plan (1) SBO (small bowel obstruction): Status: Acute Category: Medical Code(s): K56.609 - Unspecified intestinal obstruction, unspecified as to partial versus complete obstruction (2) Acute hyponatremia: Status: Acute Category: Medical Code(s): E87.1 - Hypo-osmolality and hyponatremia (3) Elevated lactic acid level: Status: Acute Category: Medical Code(s): R79.89 - Other specified abnormal findings of blood chemistry (4) Diabetes: Status: Acute Category: Medical Code(s): E11.9 - Type 2 diabetes mellitus without complications (5) Ulcerative colitis: Status: Acute Category: Medical Code(s): K51.90 - Ulcerative colitis, unspecified, without complications (6) Colostomy present: Status: Acute Category: Medical Code(s): Z93.3 - Colostomy status (7) Opiate dependence: Status: Acute Category: Medical Code(s): F11.20 - Opioid dependence, uncomplicated Plan 50-year-old male with history of colostomy due to UC who presented with abdominal pain, nausea, vomiting. Workup in the ER concerning for SBO. NG placed. Discussed case with ER physician, request admission for serial exams and initial medical management of bowel obstruction. I agreed to admit for further care. Surgery consulted to assist with management. Continues to require inpatient management pending advancement of diet. Problems addressed as follows: Small bowel obstruction History of colectomy Ulcerative colitis -CT per my review with dilated loops of small bowel. No clear transition point. 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 -Lactate normalized on morning lab at 1.5 -Continue Toradol 30 mg IV every 6 hours as needed for pain. Zofran 4 mg as needed every 6 hours for nausea - Surgery evaluated today, discussed case, as NG came out overnight, that he is having ostomy output, will hold on replacement of NG. Advance to sips and chips. Continue to monitor output with serial exams. Continue medical management. Encourage ambulation. -Discontinue IV fluid - White count bumped at 14.4. No focal signs of infection. Kidney function normal with BUN 16, creatinine 0.9. Magnesium 2.1. Potassium 4.2. Sodium 129. Glucose 157 on morning labs. - repeat CBC, CMP, magnesium ordered for the morning Type 2 diabetes - Not on any meds at this time. A1c 7.6. Initiate on sliding scale with fingersticks ACHS Hypertension: Not on any meds at this time. Monitor blood pressure for treatment. blood pressure acceptable at 142/74 at this time Opiate use disorder: On Suboxone. Uses one 8/2 mg dose 3 times a day. Continue home regimen while admitted. Increases for obstruction due to opiate effect on bowels. Definitely complicates his care. Tobacco use disorder: Nicotine patch daily as needed Full code Lovenox 40 mg subcu daily Sips and clears
[2025-10-21] MEDS: NICOTINE 21MG/24HR PATCH 21 MG TD (14:52)
--- NOTE | 2025-10-21 15:16 | PC.NURSE ---
Aox 4, up ad eva, right colostomy, fsbg achs, using urinal, 20g r ac sl, 90's on RA, 20g R AC sl.
[2025-10-21 15:59] LABS: POC Glucose,Bedside 138 gm/dL (70-110)
[2025-10-21 16:00] VITALS: BP 114/71; PULSE 74; RESP 16; TEMP 36.6; O2SAT 98
[2025-10-21 20:00] VITALS: BP 109/68; PULSE 69; RESP 16; TEMP 36.8; O2SAT 97
[2025-10-21] MEDS: PANTOPRAZOLE 40MG TABLET 40 MG PO (20:10)
[2025-10-21 20:30] LABS: POC Glucose,Bedside 133 gm/dL (70-110)
[2025-10-22] VITALS: BP 130/72; PULSE 69; RESP 16; TEMP 36.5; O2SAT 100
[2025-10-22 04:00] VITALS: BP 137/74; PULSE 73; RESP 16; TEMP 36.6; O2SAT 97; BMI 28.8
--- NOTE | 2025-10-22 05:23 | PC.NURSE ---
Pt. is alert and orientated x 4. Pt. is on room air. Pt. denies any pain , nausea, or vomiting this shift. Pt. has a right sided colostomy with liquid stool output. When pt. was admitted to the hospital he had no ostomy output, pain, nausea and vomiting. Pt. states that he is feeling a lot better. Pt. taking some sips and chips clear liquids and tolerating well. Pt. has slept on and off this shift. Personal items and call rivera in reach. Bed in low and locked position. Safety measures in place.
[2025-10-22 07:14] LABS: Hematocrit 40.2 % (42.0-52.0); Hemoglobin 13.5 g/dL (14.1-18.0); Immature Granulocytes % 0.3 %; Mean Corpuscular HGB Conc 33.6 g/dL (31.8-35.4); Mean Corpuscular Hemoglobin 27.3 pg (27.0-31.2); Mean Corpuscular Volume 81.4 fl (80-94); Nucleated Red Blood Cells % 0 %; Platelet Count 275 K/mm3 (142-424); Red Blood Count 4.94 M/mm3 (4.60-6.20); Red Cell Distribution Width-SD 37.6 fL; White Blood Count 6.6 K/mm3 (4.8-10.8)
[2025-10-22 07:24] LABS: Blood Urea Nitrogen 12 mg/dl (9-20); Calcium 9.3 mg/dl (8.4-10.2); Carbon Dioxide 26 mmol/L (22.0-30.0); Creatinine Clearance Estimated 111 mL/min (50-200); Creatinine,Serum 1.00 mg/dl (0.66-1.25); Estimated Glomerular Filt Rate 78 ml/min (>60); GFR (African American) 95 ML/MIN (>60); Glucose 137 mg/dl (74-100); Magnesium 2.2 mg/dl (1.6-2.3)
[2025-10-22 07:52] LABS: Anion Gap 9.6 mEq/L (5-15); Chloride 100 mmol/L (98-107); Potassium 4.6 mmoL/L (3.5-5.1); Sodium 131 mmol/L (136-145)
[2025-10-22] MEDS: BUPRENORPHINE/NALOXONE 8MG/2MG ODT 1 EACH SL ×3 (07:58→20:26)
[2025-10-22 08:00] VITALS: BP 151/74; PULSE 85; RESP 18; TEMP 36.8; O2SAT 99
[2025-10-22] MEDS: NICOTINE 21MG/24HR PATCH 21 MG TD ×2 (08:12→20:37)
--- NOTE | 2025-10-22 09:54 | P.PN_ITS ---
Subjective Patient reports: no new complaints Narrative: Patient has been tolerating clear liquids. Ileostomy output. He does state he feels a bit bloated but he states that he always feels bloated . Exam Data for Last 24 hours Vital signs and Labs for Last 24 Hours: Temp Pulse Resp BP Pulse Ox O2 Del Method 98.2 F 85 18 151/74 H 99 Room Air 10/22/25 08:00 10/22/25 08:00 10/22/25 08:00 10/22/25 08:00 10/22/25 08:00 10/22/25 08:00 Laboratory Results - last 24 hr 10/21/25 10:39: POC Glucose 173 H 10/21/25 15:52: POC Glucose 138 H 10/21/25 20:20: POC Glucose 133 H 10/22/25 06:15: WBC 6.6 D, RBC 4.94, Hgb 13.5 L, Hct 40.2 L, MCV 81.4, MCH 27.3, MCHC 33.6, RDW 12.8, Plt Count 275, MPV 9.2, Neut % (Auto) 67.9, Lymph % (Auto) 14.0, [place] % (Auto) 9.1, Eos % (Auto) 7.9, Baso % (Auto) 0.8, Neut # (Auto) 4.5, Lymph # (Auto) 0.9, [place] # (Auto) 0.6, Eos # (Auto) 0.5 H, Baso # (Auto) 0.1, Sodium 131 L, Potassium 4.6, Chloride 100, Carbon Dioxide 26, Anion Gap 9.6, BUN 12, Creatinine 1.00, Estimated Creat Clear 111, Estimated GFR 78, Est GFR ( Amer) 95, Glucose 137 H, Calcium 9.3, Magnesium 2.2 I & O for Last 24 hours: Intake & Output 10/19/25 10/20/25 10/21/25 10/22/25 11:59 11:59 11:59 11:59 Intake Total 1700 / 1700 120 / 120 Output Total 250 / 600 350 / 350 Balance 1450 / 1100 -230 / -230 Weight 201 lb 0.985 oz 201 lb *Routine Abdominal Exam Abdominal: Present soft Comments: Slightly distended. Less tenderness. Progress Note: A&P Assessment and plan (1) SBO (small bowel obstruction): Status: Acute Assessment and plan: Slowly advance diet. (2) Acute hyponatremia: Status: Acute (3) Elevated lactic acid level: Status: Acute (4) Diabetes: Status: Acute (5) Ulcerative colitis: Status: Acute (6) Colostomy present: Status: Acute (7) Opiate dependence: Status: Acute
--- NOTE | 2025-10-22 10:42 | EXP.ACUTE.PN ---
Subjective *Date: 10/22/25 *Time: 12:51 Interval history: For somewhat better. Belly pain improving. Still having ostomy output. Advancing diet today. Stable on room air. No nausea or vomiting Medical Exam Vital signs and Labs for Last 24 Hours: Vital Signs Temp Pulse Resp BP Pulse Ox O2 Del Method 10/22/25 10:35 Room Air 10/22/25 08:00 98.2 F 85 18 151/74 H 99 Room Air 10/22/25 08:00 Room Air 10/22/25 06:59 Room Air 10/22/25 05:00 Room Air 10/22/25 04:00 97.9 F 73 16 137/74 97 Room Air 10/22/25 03:00 Room Air 10/22/25 01:00 Room Air 10/22/25 00:00 97.7 F 69 16 130/72 100 Room Air 10/21/25 23:00 Room Air 10/21/25 21:00 Room Air 10/21/25 20:00 16 97 Room Air 10/21/25 20:00 98.2 F 69 16 109/68 L 97 Room Air 10/21/25 18:20 Room Air 10/21/25 16:00 97.8 F 74 16 114/71 98 Room Air 10/21/25 14:37 Room Air 10/21/25 12:00 98.8 F 71 16 118/60 97 Room Air Intake and Output 10/21/25 10/22/25 10/22/25 23:59 07:59 15:59 Intake Total 120 / 480 360 / 480 Output Total 0 / 0 0 / 0 Balance 120 / 480 360 / 480 Intake: Intake, Oral Amount 120 / 480 360 / 480 Output: Output, Urine Amount 0 / 0 0 / 0 Other: Number of Unmeasured Voids 1 1 Number of Bowel Movements 1 Weight 91.172 kg Patient Weight 10/22/25 23:59 Weight 91.172 kg Laboratory Results - last 24 hr 10/21/25 10:39: POC Glucose 173 H 10/21/25 15:52: POC Glucose 138 H 10/21/25 20:20: POC Glucose 133 H 10/22/25 06:15: WBC 6.6 D, RBC 4.94, Hgb 13.5 L, Hct 40.2 L, MCV 81.4, MCH 27.3, MCHC 33.6, RDW 12.8, Plt Count 275, MPV 9.2, Neut % (Auto) 67.9, Lymph % (Auto) 14.0, [place] % (Auto) 9.1, Eos % (Auto) 7.9, Baso % (Auto) 0.8, Neut # (Auto) 4.5, Lymph # (Auto) 0.9, [place] # (Auto) 0.6, Eos # (Auto) 0.5 H, Baso # (Auto) 0.1, Sodium 131 L, Potassium 4.6, Chloride 100, Carbon Dioxide 26, Anion Gap 9.6, BUN 12, Creatinine 1.00, Estimated Creat Clear 111, Estimated GFR 78, Est GFR ( Amer) 95, Glucose 137 H, Calcium 9.3, Magnesium 2.2 I & O for Labs for Last 24 Hours: Intake & Output 10/19/25 10/20/25 10/21/25 10/22/25 23:59 23:59 23:59 23:59 Intake Total 1700 / 1820 480 / 480 Output Total 200 / 250 400 / 400 0 / 0 Balance -200 / -250 1300 / 1420 480 / 480 Weight 91.626 kg 91.2 kg 91.172 kg Constitutional: Present no acute distress, chronically ill appearing and cooperative Head: Present atraumatic Comment:: Seborrhea in distribution of [place]nel[place] Respiratory: Present normal respiratory effort; Absent rhonchi, wheezes or crackles Cardiac: Present Reg Rate and Rhythm GI: Present soft, tenderness (Mild, improved) and normal bowel sounds; Absent distention Comments:: Colostomy present right lower abdomen, having liquid and loose stool output Extremities: Present normal inspection and full ROM Skin: Present intact; Absent erythema Comment:: Scars on left forearm consistent with prior cutting Neuro: Present Grossly Intact, alert, awake, oriented x 3 and moves all extremities Assessment and Plan *Assessment and plan (1) SBO (small bowel obstruction): Status: Acute Category: Medical Code(s): K56.609 - Unspecified intestinal obstruction, unspecified as to partial versus complete obstruction (2) Acute hyponatremia: Status: Acute Category: Medical Code(s): E87.1 - Hypo-osmolality and hyponatremia (3) Elevated lactic acid level: Status: Acute Category: Medical Code(s): R79.89 - Other specified abnormal findings of blood chemistry (4) Diabetes: Status: Acute Category: Medical Code(s): E11.9 - Type 2 diabetes mellitus without complications (5) Ulcerative colitis: Status: Acute Category: Medical Code(s): K51.90 - Ulcerative colitis, unspecified, without complications (6) Colostomy present: Status: Acute Category: Medical Code(s): Z93.3 - Colostomy status (7) Opiate dependence: Status: Acute Category: Medical Code(s): F11.20 - Opioid dependence, uncomplicated Plan 50-year-old male with history of colostomy due to UC who presented with abdominal pain, nausea, vomiting. Workup in the ER concerning for SBO. NG placed. Discussed case with ER physician, request admission for serial exams and initial medical management of bowel obstruction. I agreed to admit for further care. Surgery consulted to assist with management. Continues to require inpatient management pending advancement of diet. Problems addressed as follows: Small bowel obstruction History of colectomy Ulcerative colitis -CT per my review with dilated loops of small bowel. No clear transition point. 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 -Continue Toradol 30 mg IV every 6 hours as needed for pain. Zofran 4 mg as needed every 6 hours for nausea - Surgery evaluated today, discussed case, advance diet to full liquids. Monitor for 24 more hours. Anticipate potential discharge tomorrow if tolerates advancement. Still little bit more bloated today - White count Improved to 6.6. Hemoglobin 13.5. Kidney function normal with BUN 12, creatinine 1.0, glucose 137 on morning labs - repeat CBC, CMP, magnesium ordered for the morning Type 2 diabetes: Not on any meds at this time. A1c 7.6. Continue sliding scale with fingersticks ACHS Hypertension: Not on any meds at this time. Monitor blood pressure for treatment. blood pressure acceptable at 137/81 at this time Opiate use disorder: On Suboxone. Uses one 8/2 mg dose 3 times a day. Continue home regimen while admitted. Increases for obstruction due to opiate effect on bowels. Definitely complicates his care. Tobacco use disorder: Nicotine patch daily as needed Full code Lovenox 40 mg subcu daily Sips and clears
[2025-10-22] MEDS: humaLOG 100 UNITS/ML 10ML VIAL (SSI) SUBCUT ×3 (11:28→20:27)
[2025-10-22 11:29] LABS: POC Glucose,Bedside 278 gm/dL (70-110)
[2025-10-22 12:00] VITALS: BP 137/81; PULSE 75; RESP 20; TEMP 36.4; O2SAT 99
[2025-10-22 16:00] VITALS: BP 141/63; PULSE 80; RESP 18; TEMP 36.8; O2SAT 97
[2025-10-22 16:36] LABS: POC Glucose,Bedside 172 gm/dL (70-110)
[2025-10-22 17:07] VITALS: BMI 28.8
[2025-10-22 20:00] VITALS: BP 156/77; PULSE 73; RESP 16; TEMP 37; O2SAT 98
[2025-10-22 20:09] LABS: POC Glucose,Bedside 156 gm/dL (70-110)
[2025-10-22] MEDS: PANTOPRAZOLE 40MG TABLET 40 MG PO (20:26)
[2025-10-23] VITALS: BP 140/75; PULSE 68; RESP 16; TEMP 36.7; O2SAT 98
[2025-10-23 04:00] VITALS: BP 131/80; PULSE 81; RESP 16; TEMP 36.6; O2SAT 98; BMI 29.0
--- NOTE | 2025-10-23 04:51 | PC.NURSE ---
Pt. is alert and orientated x 4. Pt. is on room air. Pt. has had no c/o pain, nausea, or vomiting. Pt. has right sided colostomy with liquid stool output. Pt. states that he is feeling much better. Pt. tolerating regular diet at this time. Pt. has slept on and off this shift. Personal items and call rivera in reach. Bed in low and locked position. Safety measures in place.
[2025-10-23 06:18] LABS: POC Glucose,Bedside 135 gm/dL (70-110)
[2025-10-23 06:24] LABS: Hematocrit 42.4 % (42.0-52.0); Hemoglobin 14.4 g/dL (14.1-18.0); Immature Granulocytes % 0.3 %; Mean Corpuscular HGB Conc 34.0 g/dL (31.8-35.4); Mean Corpuscular Hemoglobin 27.4 pg (27.0-31.2); Mean Corpuscular Volume 80.6 fl (80-94); Nucleated Red Blood Cells % 0 %; Platelet Count 289 K/mm3 (142-424); Red Blood Count 5.26 M/mm3 (4.60-6.20); Red Cell Distribution Width-SD 36.2 fL; White Blood Count 6.7 K/mm3 (4.8-10.8)
[2025-10-23 06:39] LABS: Albumin Level 4.4 g/dl (3.5-5.0); Chloride 97 mmol/L (98-107); Sodium 137 mmol/L (136-145)
[2025-10-23 06:40] LABS: Potassium 3.9 mmoL/L (3.5-5.1)
[2025-10-23 06:42] LABS: Alanine Aminotransferase 19 U/L (12-78); Albumin/Globulin Ratio 1.4 (1.1-1.8); Alkaline Phosphatase 80 U/L (38-126); Anion Gap 15.9 mEq/L (5-15); Aspartate Amino Transferase 22 U/L (17-59); Bilirubin,Total 0.9 mg/dl (0.2-1.3); Blood Urea Nitrogen 9 mg/dl (9-20); Carbon Dioxide 28 mmol/L (22.0-30.0); Creatinine Clearance Estimated 113 mL/min (50-200); Creatinine,Serum 1.00 mg/dl (0.66-1.25); Estimated Glomerular Filt Rate 78 ml/min (>60); GFR (African American) 95 ML/MIN (>60); Globulin 3.1 g/dL (1.3-3.2); Total Protein,Serum 7.5 g/dl (6.3-8.2)
[2025-10-23 06:43] LABS: Calcium 9.1 mg/dl (8.4-10.2); Glucose 139 mg/dl (74-100)
--- NOTE | 2025-10-23 06:57 | EXP.SURG.PN ---
Subjective Narrative: Patient has no complaints. Tolerating diet. Ileostomy output. States that he feels that he is likely back to his baseline. Exam Data for Last 24 hours Vital signs and Labs for Last 24 Hours: Temp Pulse Resp BP Pulse Ox O2 Del Method 97.8 F 81 16 131/80 98 Room Air 10/23/25 04:00 10/23/25 04:00 10/23/25 04:00 10/23/25 04:00 10/23/25 04:00 10/23/25 05:00 Laboratory Results - last 24 hr 10/22/25 06:15: WBC 6.6 D, RBC 4.94, Hgb 13.5 L, Hct 40.2 L, MCV 81.4, MCH 27.3, MCHC 33.6, RDW 12.8, Plt Count 275, MPV 9.2, Neut % (Auto) 67.9, Lymph % (Auto) 14.0, [place] % (Auto) 9.1, Eos % (Auto) 7.9, Baso % (Auto) 0.8, Neut # (Auto) 4.5, Lymph # (Auto) 0.9, [place] # (Auto) 0.6, Eos # (Auto) 0.5 H, Baso # (Auto) 0.1, Sodium 131 L, Potassium 4.6, Chloride 100, Carbon Dioxide 26, Anion Gap 9.6, BUN 12, Creatinine 1.00, Estimated Creat Clear 111, Estimated GFR 78, Est GFR ( Amer) 95, Glucose 137 H, Calcium 9.3, Magnesium 2.2 10/22/25 11:22: POC Glucose 278 H 10/22/25 16:29: POC Glucose 172 H 10/22/25 19:59: POC Glucose 156 H 10/23/25 06:10: POC Glucose 135 H 10/23/25 06:11: WBC 6.7, RBC 5.26, Hgb 14.4, Hct 42.4, MCV 80.6, MCH 27.4, MCHC 34.0, RDW 12.6, Plt Count 289, MPV 8.6, Neut % (Auto) 72.0, Lymph % (Auto) 14.6, [place] % (Auto) 7.5, Eos % (Auto) 4.7, Baso % (Auto) 0.9, Neut # (Auto) 4.8, Lymph # (Auto) 1.0, [place] # (Auto) 0.5, Eos # (Auto) 0.3, Baso # (Auto) 0.1, Sodium 137, Potassium 3.9, Chloride 97 L, Carbon Dioxide 28, Anion Gap 15.9 H, BUN 9, Creatinine 1.00, Estimated Creat Clear 113, Estimated GFR 78, Est GFR ( Amer) 95, Glucose 139 H, Calcium 9.1, Total Bilirubin 0.9, AST 22, ALT 19, Alkaline Phosphatase 80, Total Protein 7.5, Albumin 4.4, Globulin 3.1, Albumin/Globulin Ratio 1.4 I & O for Last 24 hours: Intake & Output 10/20/25 10/21/25 10/22/25 10/23/25 11:59 11:59 11:59 11:59 Intake Total 1700 / 1700 480 / 480 870 / 870 Output Total 250 / 600 350 / 350 2 / 2 Balance 1450 / 1100 130 / 130 868 / 868 Weight 201 lb 0.985 oz 201 lb 203 lb 4.259 oz *Routine Abdominal Exam Abdominal: Absent tenderness Comments: Palpable parastomal hernia Progress Note: A&P Assessment and plan (1) SBO (small bowel obstruction): Status: Acute Assessment and plan: Continue nonoperative management. (2) Acute hyponatremia: Status: Acute (3) Elevated lactic acid level: Status: Acute (4) Diabetes: Status: Acute (5) Ulcerative colitis: Status: Acute (6) Colostomy present: Status: Acute (7) Opiate dependence: Status: Acute
--- NOTE | 2025-10-23 07:00 | P.DS_ITS ---
General Admission date:: 10/20/25 Discharge date: 10/23/25 HPI HPI HPI: Patient is a 50-year-old male from [facility] with reported history of ulcerative colitis and reported history of opiate use disorder. He is on Suboxone. He has a history of diabetes and hypertension but currently not taking any medications and has not seen a physician in greater than a year. He underwent colostomy and hazard [facility] in 2017. He had developed intermittent cramping abdominal pain over 24 hours prior to presentation to the emergency department. He had noticed decreased output from his colostomy. He presented to the emergency department. He had some relief of his symptoms with Zofran and Toradol. He underwent CT scan in the emergency department which revealed findings consistent with total colectomy, dilated small bowel loops in the left abdomen with decompressed loops both proximally and distally. He has a right lower quadrant ostomy with parastomal hernia containing small bowel which does not appear to be site of any obstruction. Surgery was contacted. This is felt to be reasonable for admission for inpatient management for bowel obstruction. Subsequently the patient's nasogastric tube became dislodged and fell out . He states that he feels better. He has emptied his ileostomy bag. Hospital Course Hospital Course Hospital Course: 50-year-old male with history of colostomy due to UC who presented with abdominal pain, nausea, vomiting. Workup in the ER concerning for SBO. NG plac ed. Discussed case with ER physician, request admission for serial exams and initial medical management of bowel obstruction. I agreed to admit for further care. Surgery consulted to assist with management. Obstruction resolved with conservative management. NG out in first 24 hours of admission. Able to gradually advance diet with continued output and improvement in bloating. Stable to discharge home with close follow-up as an outpatient either with surgery at [facility] or his surgeon in [facility], at patient's discretion. Problems addressed as follows: Small bowel obstruction History of colectomy Ulcerative colitis -CT per my review with dilated loops of small bowel. No clear transition point. 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 Pain managed with Toradol and resumption of his buprenorphine. Surgery consulted to assist with management. Initially had NG in place. Came out within first 24 hours. As patient was having output, it was not replaced. Diet was slowly advanced and patient's abdominal pain, nausea, bloating gradually resolved. Able to tolerate regular diet without incident by day of discharge. Recommend close follow-up as an outpatient. Overall doing well. No indication for antibiotics at discharge. Labs including white count and kidney function remain normal. Type 2 diabetes: Not on any meds at this time. A1c 7.6. Recommend further discussion with PCP about medication initiation. Received minimal insulin during admission. Held on med initiation given patient's GI symptoms and glucose levels less than 200 during admission. Hypertension: Not on any meds at this time. Stable during admission. Pressure relatively well-controlled during admission. Further discussion with PCP about initiation of blood pressure meds after reevaluation in the outpatient setting Opiate use disorder: On Suboxone. Uses one 8/2 mg dose 3 times a day. Continue home regimen while admitted. Increases risk for obstruction due to opiate effect on bowels. Definitely complicates his care. Tobacco use disorder: Nicotine patch daily as needed Total time spent on discharge 32 minutes in counseling, documentation, chart review, and direct care with patient. Exam Data for Last 24 hours Vital signs and Labs for Last 24 Hours: Temp Pulse Resp BP Pulse Ox O2 Del Method 97.8 F 81 16 131/80 98 Room Air 10/23/25 04:00 10/23/25 04:00 10/23/25 04:00 10/23/25 04:00 10/23/25 04:00 10/23/25 05:00 Laboratory Results - last 24 hr 10/22/25 06:15: WBC 6.6 D, RBC 4.94, Hgb 13.5 L, Hct 40.2 L, MCV 81.4, MCH 27.3, MCHC 33.6, RDW 12.8, Plt Count 275, MPV 9.2, Neut % (Auto) 67.9, Lymph % (Auto) 14.0, Mobile % (Auto) 9.1, Eos % (Auto) 7.9, Baso % (Auto) 0.8, Neut # (Auto) 4.5, Lymph # (Auto) 0.9, Mobile # (Auto) 0.6, Eos # (Auto) 0.5 H, Baso # (Auto) 0.1, Sodium 131 L, Potassium 4.6, Chloride 100, Carbon Dioxide 26, Anion Gap 9.6, BUN 12, Creatinine 1.00, Estimated Creat Clear 111, Estimated GFR 78, Est GFR ( Amer) 95, Glucose 137 H, Calcium 9.3, Magnesium 2.2 10/22/25 11:22: POC Glucose 278 H 10/22/25 16:29: POC Glucose 172 H 10/22/25 19:59: POC Glucose 156 H 10/23/25 06:10: POC Glucose 135 H 10/23/25 06:11: WBC 6.7, RBC 5.26, Hgb 14.4, Hct 42.4, MCV 80.6, MCH 27.4, MCHC 34.0, RDW 12.6, Plt Count 289, MPV 8.6, Neut % (Auto) 72.0, Lymph % (Auto) 14.6, Mobile % (Auto) 7.5, Eos % (Auto) 4.7, Baso % (Auto) 0.9, Neut # (Auto) 4.8, Lymph # (Auto) 1.0, Mobile # (Auto) 0.5, Eos # (Auto) 0.3, Baso # (Auto) 0.1, Sodium 137, Potassium 3.9, Chloride 97 L, Carbon Dioxide 28, Anion Gap 15.9 H, BUN 9, Creatinine 1.00, Estimated Creat Clear 113, Estimated GFR 78, Est GFR ( Amer) 95, Glucose 139 H, Calcium 9.1, Total Bilirubin 0.9, AST 22, ALT 19, Alkaline Phosphatase 80, Total Protein 7.5, Albumin 4.4, Globulin 3.1, Albumin/Globulin Ratio 1.4 I & O for Last 24 hours: Intake & Output 10/20/25 10/21/25 10/22/25 10/23/25 23:59 23:59 23:59 23:59 Intake Total 1700 / 1820 1110 / 1350 240 / 240 Output Total 200 / 250 400 / 400 2 / 2 0 / 0 Balance -200 / -250 1300 / 1420 1108 / 1348 240 / 240 Weight 91.626 kg 91.2 kg 91.172 kg 92.2 kg Constitutional Constitutional: no acute distress, chronically ill appearing and cooperative *Routine HEENT Exam Head: Present normocephalic Eye: Present EOMI and PERRL ENT: Present mucous membranes moist *Routine Neck Exam Neck: Present supple; Absent lymphadenopathy *Routine Respiratory Exam Respiratory: Present CTA bilaterally *Routine Cardiovascular Exam Cardiovascular: Present RRR and murmur *Routine Abdominal Exam Abdominal: Present soft, normoactive bowel sounds and ostomy (Right lower abdomen with liquid and semi-formed stool); Absent tenderness or distended *Routine Rectal Exam Patient deferred: visual exam *Routine Exam Patient deferred: penile exam *Routine Extremities Exam Extremities: Absent cyanosis, clubbing or edema *Routine Skin Exam Skin: Present warm; Absent rash *Routine Neurological Exam Neurological: Present alert, oriented X3 and moving all extremities; Absent altered mental status Results Data Completed and Pending Labs on day of discharge: Labs from last 24 hours 10/23/25 10/23/25 10/22/25 06:11 06:10 19:59 WBC 6.7 RBC 5.26 Hgb 14.4 Hct 42.4 MCV 80.6 MCH 27.4 MCHC 34.0 RDW 12.6 Plt Count 289 MPV 8.6 Neut % (Auto) 72.0 Lymph % (Auto) 14.6 Mobile % (Auto) 7.5 Eos % (Auto) 4.7 Baso % (Auto) 0.9 Neut # (Auto) 4.8 Lymph # (Auto) 1.0 Mobile # (Auto) 0.5 Eos # (Auto) 0.3 Baso # (Auto) 0.1 Sodium 137 Potassium 3.9 Chloride 97 L Carbon Dioxide 28 Anion Gap 15.9 H BUN 9 Creatinine 1.00 Estimated Creat Clear 113 Estimated GFR 78 Est GFR ( Amer) 95 Glucose 139 H POC Glucose 135 H 156 H Calcium 9.1 Magnesium Total Bilirubin 0.9 AST 22 ALT 19 Alkaline Phosphatase 80 Total Protein 7.5 Albumin 4.4 Globulin 3.1 Albumin/Globulin Ratio 1.4 10/22/25 10/22/25 10/22/25 16:29 11:22 06:15 WBC 6.6 D RBC 4.94 Hgb 13.5 L Hct 40.2 L MCV 81.4 MCH 27.3 MCHC 33.6 RDW 12.8 Plt Count 275 MPV 9.2 Neut % (Auto) 67.9 Lymph % (Auto) 14.0 Mobile % (Auto) 9.1 Eos % (Auto) 7.9 Baso % (Auto) 0.8 Neut # (Auto) 4.5 Lymph # (Auto) 0.9 Mobile # (Auto) 0.6 Eos # (Auto) 0.5 H Baso # (Auto) 0.1 Sodium 131 L Potassium 4.6 Chloride 100 Carbon Dioxide 26 Anion Gap 9.6 BUN 12 Creatinine 1.00 Estimated Creat Clear 111 Estimated GFR 78 Est GFR ( Amer) 95 Glucose 137 H POC Glucose 172 H 278 H Calcium 9.3 Magnesium 2.2 Total Bilirubin AST ALT Alkaline Phosphatase Total Protein Albumin Globulin Albumin/Globulin Ratio DS: Diagnosis Discharge Diagnosis (1) SBO (small bowel obstruction): Status: Acute Code(s): K56.609 - Unspecified intestinal obstruction, unspecified as to partial versus complete obstruction (2) Acute hyponatremia: Status: Acute Code(s): E87.1 - Hypo-osmolality and hyponatremia (3) Elevated lactic acid level: Status: Acute Code(s): R79.89 - Other specified abnormal findings of blood chemistry (4) Diabetes: Status: Acute Code(s): E11.9 - Type 2 diabetes mellitus without complications (5) Ulcerative colitis: Status: Acute Code(s): K51.90 - Ulcerative colitis, unspecified, without complications (6) Colostomy present: Status: Acute Code(s): Z93.3 - Colostomy status (7) Opiate dependence: Status: Acute Code(s): F11.20 - Opioid dependence, uncomplicated Meds Home Medications and Allergies Home Medications ?Medication ?Instructions ?Recorded ?Confirmed ?Type buprenorphine 8 mg-naloxone 2 mg 3 tab sublingual SAHRA Y 10/20/25 10/20/25 History sublingual tablet New Prescriptions to Start Prescriptions: Allergies Allergy/AdvReac Type Severity Reaction Status Date / Time No Known Allergies Allergy Verified 10/20/25 12:19 Discharge Plan Disposition Patient Disposition: Home, Self-Care Condition: Fair Discharge Order Discharge Orders: Discharge Order (Routine); Ordered 10/23/25 Ordered By: Jarek Orlando Follow up Plan Follow up with: Dustin Howard MD [Staff Physician, General Surgery] - 11/02/25 9:00 am Prescriptions/Medication Reconciliation: Continued buprenorphine-naloxone 8-2 mg tablet, sublingual 3 tab SUBLINGUAL DAILY Problem Reconciliation Problems Reviewed?: Yes Patient Discharge Instructions ACTIVITY: Continue current activity DIET: continue same diet Patient Instructions: DI for Small Bowel Obstruction, DI for Ulcerative Colitis Print Language: Romanian Providers Primary Care Provider: Provider,Referral Admit Provider: Jarek Orlando Attending Provider: Jarek Orlando
[2025-10-23 07:57] VITALS: BP 141/70; PULSE 104; RESP 14; TEMP 36.8; O2SAT 98
[2025-10-23] MEDS: BUPRENORPHINE/NALOXONE 8MG/2MG ODT 1 EACH SL (08:00)
[2025-10-23] MEDS: NICOTINE 21MG/24HR PATCH 21 MG TD (08:00)
[2025-10-23 12:59] LABS: POC Glucose,Bedside 131 gm/dL (70-110)
--- NOTE | 2025-10-25 10:22 | SW/DCPLANNER ---
Phoned patient x2. Left messages with name and a call back number each time. Tima EDWARD Lisw
== END 2025-10-23 10:31 | disposition home or self-care (01) | DRG 389 ==
LOC: ER 13:21 → 2ND 15:21
PROVIDERS: Admitting Provider Internal Medicine Adolescent Medicine; Emergency Provider Student in an Organized Health Care Education/Training Program; Visit Provider Internal Medicine Adolescent Medicine
DX: K56.609 Unspecified intestinal obstruction, unspecified as to partial versus complete obstruction (principal); F11.20 Opioid dependence, uncomplicated; K51.90 Ulcerative colitis, unspecified, without complications; K43.5 Parastomal hernia without obstruction or gangrene; E11.65 Type 2 diabetes mellitus with hyperglycemia; I10 Essential (primary) hypertension; F17.200 Nicotine dependence, unspecified, uncomplicated; R79.89 Other specified abnormal findings of blood chemistry; Z93.3 Colostomy status; Z79.899 Other long term (current) drug therapy
CPT/HCPCS: 36415; 74018; 74177; 80048; 80053; 81001; 82962; 83036; 83605; 83690; 83735; 85007; 85025; 86803; 87389; 99285; J0574; J1650; J1885; J2405; J2550; J7120; Q9967